=== PATIENT | male | born 1950 | race Caucasian/White ===

== ENCOUNTER 2018-10-06 13:30 | Inpatient (IN) ==
[2018-10-06] MEDS ORDERED: VANCOMYCIN 1 GM/NS 1 GM/250 ML IVPB IV ONE (13:56)
[2018-10-06] MEDS ORDERED: DILAUDID IV ONE (13:59)
--- NOTE | 2018-10-06 14:30 | PROVIDER DOCUMENTATION ---
HPI-General Adult - General Chief Complaint: Extremity Pain Stated Complaint: rt foot 3RD TOE BLUE Time Seen by Provider: 10/06/18 13:54 Source: patient Allergies/Adverse Reactions: Patient Allergies Allergy/AdvReac Type Severity Reaction Status Date / Time Penicillins Allergy Unknown Verified 04/01/18 00:21 Home Medications: Home Medication List Medication Instructions Recorded Confirmed Last Taken Type Albuterol Sulfate Inhaler 2 puff INH Q4H PRN PRN #1 inhaler 05/27/15 04/01/18 03/31/18 21:00 Rx [Ventolin Hfa] Furosemide [Lasix] 20 mg PO DAILY #30 tablet 05/27/15 04/01/18 03/31/18 07:00 Rx Glipizide [Glipizide ER] 10 mg PO BID 04/02/18 04/02/18 Unknown History Isosorbide Mononitrate [Isosorbide 60 mg PO DAILY 04/02/18 04/02/18 Unknown History Mononitrate ER] Lisinopril 20 mg PO DAILY 04/02/18 04/02/18 Unknown History Metformin [Glucophage] 1,000 mg PO BID 04/02/18 04/02/18 Unknown History Aspirin 81 mg PO DAILY chewtab 04/03/18 Unknown Rx Carvedilol [Coreg] 6.25 mg PO BID tablet 04/03/18 Unknown Rx Insulin Aspart [Novolog] 20 units SUBQ QAM #0 04/03/18 04/02/18 Unknown Rx Ipratropium [place] Inhaler 2 puff INH FA0EUGA #1 inhaler 04/03/18 Unknown Rx [Atrovent Hfa] Levofloxacin [Levaquin] 750 mg PO DAILY #3 tab 04/03/18 Unknown Rx Methylprednisolone [Medrol Dosepak] 4 mg PO DIRECTED #1 pkg 04/03/18 Unknown Rx - History of Present Illness -Gen Adult Nature of Presenting Problems: 68 YOM presents with a R foot wound on the second toe Location of Pain/Injury: reports: feet Pain Radiation: reports: no radiation Body: 1 - 2nd toe wound, black with foul smell and no drainage Quality of Pain: reports: aching, throbbing Severity: reports: moderate Onset/Duration: reports: 2 days ago Timing: reports: still present Context/Activities at Onset: reports: none Modifying Factors: improves with: nothing Associated Symptoms: reports: denies symptoms Similar Symptoms Previously?: No Recently seen or treated by another doctor?: No - Diabetes Related Context Context: reports: high blood sugar Review of Systems - Adult - REVIEW OF SYSTEMS - ADULT ROS:: unobtainable per condition Constitutional: reports: no symptoms reported Eyes: reports: no symptoms reported Ears, Nose, Mouth & Throat: reports: no symptoms reported Cardiovascular: reports: no symptoms reported Respiratory: reports: no symptoms reported Gastrointestinal: reports: no symptoms reported Genitourinary: reports: no symptoms reported Musculoskeletal: reports: no symptoms reported Integumentary: reports: skin sores/ulcer (l 2nd toe) Neurological: reports: no symptoms reported Psychiatric: reports: no symptoms reported Endocrine: reports: no symptoms reported Hematologic/Lymphatic: reports: no symptoms reported Allergic/Immunologic: reports: no symptoms reported Past History - Adult - PAST MEDICAL HISTORY-ADULT Review of Records: reports: Nursing Assessment Review Major Childhood Illnesses: reports: denies history Cardiovascular: reports: HTN Respiratory: reports: COPD Gastrointestinal: reports: denies history Obstetrical/Gynecological: reports: denies history Genitourinary: reports: denies history Musculoskeletal: reports: denies history Neurological: reports: denies history Psychiatric: reports: denies history Endocrine/Immune: reports: denies history Other Conditions: reports: denies history - PRIOR SURGERIES/PROCEDURES Surgical/Procedure History: reports: reviewed, not pertinent - IMMUNIZATION STATUS Childhood Immunizations: See Nurse Assessment Flu Vaccine: See Nurse Assessment - FAMILY HISTORY Family History: reviewed, not pertinent Physical Exam-General - PHYSICAL EXAM-ADULT Initial Vital Signs Reviewed: Yes - CONSTITUTIONAL General Appearance: appears well, alert, no apparent distress - EYES Eyes: PERRL/EOMI, pink conjunctivae - HEAD, EARS, NOSE, MOUTH & THROAT HENMT: normocephalic/atraumatic, moist mucous membranes - NECK Neck: non-tender, full range of motion - RESPIRATORY Respiratory: chest non-tender, lungs clear - CARDIOVASCULAR Cardiovascular: normal peripheral pulses - GASTROINTESTINAL (ABDOMEN) Abdominal Exam: normal bowel sounds, non tender - LYMPHATIC Lymphatic: no adenopathy - MUSCULOSKELETAL Back Exam: normal inspection, no CVA tenderness, no vertebral tenderness Extremity: no pedal edema Peripheral Pulses: dorsalis-pedis (R): 1+, dorsalis-pedis (L): 1+ - SKIN Integumentary: warm/dry, other (ulcer to L second toe) - NEUROLOGIC Neurologic: grossly normal - PSYCHIATRIC Psych/Mental Status: normal mood/affect, oriented x 3 Progress - PLAN OF CARE/RESULTS Progress/Plan/Lab Results: Vital Signs - 8 hr 10/06/18 13:39 10/06/18 13:49 10/06/18 13:50 Temperature 97.9 F Pulse Rate 111 H 115 H 116 H Respiratory Rate 18 10 L 22 Blood Pressure 91/70 O2 Sat by Pulse Oximetry 99 99 100 10/06/18 13:53 10/06/18 14:00 10/06/18 14:10 Temperature Pulse Rate 115 H 113 H 112 H Respiratory Rate 18 19 25 H Blood Pressure 190/96 O2 Sat by Pulse Oximetry 98 99 95 10/06/18 14:20 Temperature Pulse Rate 109 H Respiratory Rate 23 Blood Pressure O2 Sat by Pulse Oximetry 99 Orders Category Date Time Status FSBS/Accucheck Result NOW Care 10/06/18 13:56 Active Saline Loc NOW Care 10/06/18 13:54 Active BLOOD CULTURE [BLDCUL] Stat Lab 10/06/18 13:56 Uncollected CBC WITH ELECTRONIC DIFF [HEME] Stat Lab 10/06/18 13:54 Uncollected COMPREHENSIVE METABOLIC PANEL [CHEM] Stat Lab 10/06/18 13:54 Uncollected PROTIME WITH INR [COAG] Stat Lab 10/06/18 13:54 Uncollected PTT [COAG] Stat Lab 10/06/18 13:54 Uncollected URINALYSIS [URINALYSIS] Stat Lab 10/06/18 13:56 Uncollected Hydromorphone [Dilaudid] Med 10/06/18 13:59 Discontinued 1 mg IV NOW ONE Vancomycin 1 gm/Ns Med 10/06/18 13:56 Active 1 gm in 250 ml IV NOW EKG [EKG] Stat Ther 10/06/18 13:54 Ordered Result Diagrams: 10/06/18 14:35 10/06/18 14:35 - REASSESSMENT Reassessment #1 Time Reassessed: 14:40 (pain improved) Status: improving Reassessment #2 Time Reassessed: 15:50 (Hospitalist Paged) Status: improving - XRAY 1 XRAY Study: Chest Departure - Departure Date of Disposition Decision: 10/06/18 Time of Disposition Decision: 15:58 DIAGNOSIS: Diabetic foot infection Disposition: ADMITTED INPATIENT 09 Certified Medical Emergency: Emergent Condition: Stable Referrals and Follow-Ups: None,PCP [Primary Care Provider] - - Critical Care Note This patient required my direct & personal management of CC.: No Attestation - Physician/ GARRY Attestation Patient care was provided by Advanced Practice Provider:: Yes Advanced Practice Provider:: Clover Mcconnell Advanced Practice Provider documentation review:: The Mid-level provider documentation, treatment plan and medical decision making was reviewed by the physician who agrees with all treatment and medical decision making by the MLP. The physician spent face to face time with patient:: No Advanced Practice Provider documentation review:: Supervising physician onsite and consulted in the evaluation and care of this patient. The physician did not have a face to face encounter with the patient.
[2018-10-06 15:01] LABS: BASO# 0.03 X1000 (0.0-0.2); BASO% 0.2 % (0.0-0.8); EOS# 0.12 X1000 (0.0-0.7); EOS% 0.9 % (0.0-10.0); HEMATOCRIT 39.3 % (42.0-52.0); HEMOGLOBIN 13.5 g/dL (14.0-18.0); IMM GRAN# 0.03 X1000 (0.0-0.04); IMM GRAN% 0.2 % (0.0-0.5); LYMPH# 1.75 X1000 (1.2-3.4); LYMPH% 13.8 % (20.5-51.1); MCH 31.9 PG (27-31); MCHC 34.4 g/dL (33-37); MCV 92.9 FL (81-99); MONO# 1.09 X1000 (0.11-0.59); MONO% 8.6 % (1.7-9.3); MPV 8.9 FL (7.4-10.4); NEUT# 9.68 X1000 (1.4-6.5); NEUT% 76.3 % (42.2-75.2); PLT 466 X1000 (130-400); RBC 4.23 XMIL (4.7-6.1); RDW 12.4 % (11.5-14.5)
[2018-10-06 15:08] LABS: INR 1.04; PROTIME 14.5 Seconds (11.0-16.0)
[2018-10-06 15:09] LABS: PTT 34.9 Seconds (22.3-41.8)
[2018-10-06 15:24] LABS: ALB/GLOB RATIO 1.3; ALBUMIN 4.2 g/dL (3.5-5.0); CALCIUM 9.7 mg/dL (8.8-10.2); CREATININE 1.2 mg/dL (0.7-1.2); POTASSIUM 4.6 mmol/L (3.5-5.1); TOTAL BILIRUBIN 0.29 mg/dL (0.20-1.00); TOTAL PROTEIN 7.4 g/dL (6.3-8.3)
[2018-10-06] MEDS ORDERED: VANCOMYCIN IV PER PHARMACY MISC SCH (17:30)
[2018-10-06] MEDS ORDERED: TYLENOL PO PRN (17:38)
--- NOTE | 2018-10-06 18:46 | HISTORY AND PHYSICAL ---
PRIMARY CARE PROVIDER: Dr. Hinson - [facility]. CHIEF COMPLAINT: Right third toe pain and infection. HISTORY OF PRESENT ILLNESS: Mr. Omari Hager is a 68-year-old male with a medical history of CAD, CHF, COPD, diabetes mellitus type 2, hypertension, and most recently arterial disease in the right lower extremity. He states that Dr. Tripathi in June of this year, 2018, put in a stent and he has been having ultrasounds of the leg. He has noticed over the last three days that the right third toe has started hurting, specifically between the toes and on top of the toes, and there has been a crusted open wound that had developed that is very painful. It does have foul smell with purulent drainage between the toes with a cellulitis streaking up the right foot, the dorsal foot and so he has an elevated white count of 12,000. Will start him on vancomycin and consult General Surgery. We will likely need to try and get him over to [place] where he has been seen recently by Dr. Tripathi. The patient also states that he went and had an ultrasound of the right lower extremity but did not stay there. He went home and the son saw the toe, which then made him come here. PAST MEDICAL HISTORY: 1. Coronary artery disease. 2. Chronic systolic congestive heart failure. 3. COPD. 4. Type 2 diabetes. 5. Hypertension. 6. Right femoral arterial disease. I believe there is a stent there but I believe there was also mention of femoral arterial bypass, but this has not been performed. PAST SURGICAL HISTORY: Right femoral artery stent. SOCIAL HISTORY: One pack per day smoker since his teens. Alcohol about once a year. Denies any illicit drug use. He lives at home alone. 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 FAMILY HISTORY: He had one sister that had diabetes mellitus type 2 and thyroid disease. ALLERGIES: Penicillin, he is unsure of the reaction it causes. HOME MEDICATIONS: 1. Neurontin 300 mg p.o. nightly. 2. Aspirin 81 mg two tablets p.o. daily. 3. Cardizem 120 mg p.o. daily. 4. Chlorthalidone 12.5 mg p.o. daily. 5. Cilostazol 50 mg p.o. twice daily. 6. Coreg 25 mg p.o. twice daily. 7. Crestor 20 mg p.o. daily. 8. Glipizide extended release 10 mg p.o. twice daily. 9. Metformin 1000 mg p.o. twice daily. 10.Isosorbide mononitrate extended release 60 mg p.o. daily. 11.Lisinopril 40 mg p.o. daily. 12.NPH 20 units subcutaneously daily. 13.Plavix 75 mg p.o. daily. 14.Lasix 20 mg p.o. daily. 15.Albuterol sulfate two puffs inhaled every four hours p.r.n. REVIEW OF SYSTEMS: A 14-point review of systems is complete, and all were negative except for those mentioned in the above HPI. PHYSICAL EXAMINATION: VITAL SIGNS: Temperature is 97.9, heart rate 94, respiratory rate 20, blood pressure 132/89, O2 saturation is 98% on room air. GENERAL: Mr. Omari Hager is a 68-year-old male. He is in no acute distress. He is able to answer questions appropriately. HEENT: Atraumatic and normocephalic. Pupils are equal, round and reactive to light. Extraocular movements intact. Mucous membranes are moist. NECK: Trachea midline. CARDIOVASCULAR: S1, S2. Regular rate and rhythm. No rubs, gallops or murmurs. He has trace lower extremity edema. Cool feet bilaterally. Trace palpable popliteal pulses. Negative for JVD or carotid bruits. PULMONARY: Clear to auscultation with bilateral breath sounds. No accessory muscle use or work of breathing noted. GASTROINTESTINAL: Soft. Nontender. Nondistended. Positive bowel sounds x4. EXTREMITIES: Moves all extremities equally, full range of motion. NEUROLOGICAL: Alert and oriented x3. Follows commands. Sensory is intact but decreased in the lower extremities. SKIN: Warm, dry and intact except for right third toe which is necrotic and foul smelling wound. LABORATORY DATA: White blood cells 60727, hemoglobin 13, hematocrit 39, platelet count 466. INR is 1.04. PTT is 34.9. Sodium is 135, potassium 4.6, BUN is 20, creatinine 1.2, glucose 204, calcium 9.7. Bilirubin is 0.29, AST is 12, ALT is 11. IMAGING: None. ASSESSMENT AND PLAN: 1. Right third toe ulceration with wound and possibly poor perfusion to that right third toe with history of arterial disease in the right leg and recent stent [place] [address] Tripathi. So, he has been started on vancomycin. Culture ordered to swab the site and Dr. Martinez personally notified by phone. He wants to do Betadine on it for now. 2. Diabetes mellitus type 2. Will do patterned blood glucoses, sliding scale insulin, and diabetic diet. 3. Hypertension. Continue home medications. 4. Coronary artery disease. Denies chest pain. 5. Right femoral lower extremity arterial disease. Recent stent by Dr. Tripathi. He has been on Plavix, will continue that. 6. Chronic obstructive pulmonary disease. Nebulizers every six hours. Dictated by ALEX Turcios for Lisa Doan MD cc: ALEX Turcios MD I performed a face to face encounter on the patient. I reviewed all labs on the patient. I agree with the H&P as dictated. [facility]
--- NOTE | 2018-10-06 18:53 | GENERAL SURGERY CONSULTATION ---
DATE: 10/06/2018 HISTORY OF PRESENT ILLNESS: A 68-year-old gentleman history of peripheral vascular disease who had a right iliac or femoral stent placed by Dr. Lino in [place] in June or July of this year. He presents with several days of necrotic changes to his right 3rd toe. He has apparently been evaluated by Dr. Lino for this. Duplex obtained in [place] we do not have the results of this but he came the [facility]. He is supposed see [facility] Saturday. He does give claudication symptom bilateral lower extremities for some time. Denies any fevers. Some pain in his foot currently. Came the ER has been admitted the hospitalist. MEDICAL HISTORY: Peripheral vascular disease, history of smoking, hypertension, diabetes, COPD. SURGICAL HISTORY: He has had a right lower extremity arterial stent. SOCIAL HISTORY: He does smoke, history drinking. FAMILY HISTORY: Reviewed noncontributory. REVIEW OF SYSTEMS: Ten point negative. EXAM: Pulse been in the 90s, blood pressure 142/86, oxygen saturation 96%.General: He is alert, chronically ill-appearing gentleman. HEENT: No scleral icterus. Cardiovascular: Normal rate. Pulmonary: No increased work of breathing. Abdomen: Soft. Integument: Warm dry. Psychiatric: Appropriate affect. Peripheral vascular: He does have some bilateral edema. He has no palpable pedal popliteal, femoral pulses bilaterally but his feet are warm. The right 3rd toe is necrotic with no purulence . Neurologic: He is somewhat tremulous appearing. ASSESSMENT AND PLAN: A 68-year-old gentleman with necrosis of his right 3rd toe and peripheral vascular disease. We do not have any of his records regarding his arterial disease and interventions. I recommended that we attempt to get him back to Dr. Lino as is he is familiar with this case and is working this up as an outpatient. In the meantime we can continue Betadine paint to his right 3rd toe. I did discuss the non-salvageable nature of this toe, he understands, son is here with him, will follow along. cc: Gita Martinez MD
[2018-10-06] MEDS ORDERED: VANCOMYCIN 500 MG/NS 500 MG/100 ML IVPB IV ONE (19:00)
[2018-10-06] MEDS: DILAUDID IV PRN (20:20)
[2018-10-06] MEDS: AZACTAM 1 GM in NS 50 ML IV SCH (21:10)
[2018-10-06] MEDS: PULMICORT INH SCH (21:47)
[2018-10-06] MEDS: DUONEB (A & A) INH SCH (21:47)
[2018-10-06] MEDS: HUMULIN R SUBQ SCH (23:29)
[2018-10-06] MEDS: PLETAL PO SCH (23:29)
[2018-10-06] MEDS: GLUCOTROL XL PO SCH (23:29)
[2018-10-06] MEDS: NEURONTIN PO SCH (23:29)
[2018-10-06] MEDS: COREG PO SCH (23:29)
[2018-10-07] MEDS: DILAUDID IV PRN ×6 (00:16→20:22)
[2018-10-07 00:19] LABS: URINE SOURCE VOIDED
[2018-10-07 00:23] LABS: BILIRUBIN URINE NEGATIVE (NEGATIVE); BLOOD URINE TRACE (NEGATIVE); COLOR YELLOW; GLUCOSE URINE 70 mg/dL (NEGATIVE); KETONE URINE NEGATIVE (NEGATIVE); LEUKOCYTES URINE SMALL (NEGATIVE); NITRITE URINE POSITIVE (NEGATIVE); PH URINE 6.5; PROTEIN URINE 50 mg/dL (NEGATIVE); SP GRAVITY URINE 1.006; TURBIDITY URINE CLEAR (CLEAR); UR EPITHELIAL CELLS <10 /HPF (<10); URINE BACTERIA 3+ /HPF; URINE RBC <10 /HPF (<10); URINE WBC 20-40 /HPF (<10); UROBILINOGEN URINE NORMAL (NORMAL)
[2018-10-07] MEDS: DUONEB (A & A) INH SCH ×4 (03:37→22:05)
[2018-10-07] MEDS: AZACTAM 1 GM in NS 50 ML IV SCH (04:18)
[2018-10-07] MEDS: HUMULIN R SUBQ SCH ×4 (06:38→23:12)
[2018-10-07 06:52] LABS: BASO# 0.06 X1000 (0.0-0.2); BASO% 0.7 % (0.0-0.8); EOS# 0.32 X1000 (0.0-0.7); EOS% 3.6 % (0.0-10.0); HEMATOCRIT 36.1 % (42.0-52.0); HEMOGLOBIN 12.2 g/dL (14.0-18.0); LYMPH# 1.71 X1000 (1.2-3.4); MCH 32.2 PG (27-31); MCHC 33.8 g/dL (33-37); MCV 95.3 FL (81-99); MONO# 0.92 X1000 (0.11-0.59); MONO% 10.2 % (1.7-9.3); MPV 8.8 FL (7.4-10.4); NEUT# 5.97 X1000 (1.4-6.5); NEUT% 66.5 % (42.2-75.2); PLT 429 X1000 (130-400); RBC 3.79 XMIL (4.7-6.1); RDW 12.7 % (11.5-14.5); WBC 8.98 X1000 (4.8-10.8)
[2018-10-07 07:20] LABS: ALB/GLOB RATIO 1.1; ALBUMIN 3.6 g/dL (3.5-5.0); CALCIUM 9.3 mg/dL (8.8-10.2); CREATININE 1.3 mg/dL (0.7-1.2); MAGNESIUM 1.8 mg/dL (1.5-2.7); POTASSIUM 4.8 mmol/L (3.5-5.1); TOTAL BILIRUBIN 0.26 mg/dL (0.20-1.00); TOTAL PROTEIN 6.9 g/dL (6.3-8.3)
[2018-10-07] MEDS: PULMICORT INH SCH ×2 (07:25→20:08)
[2018-10-07 07:46] LABS: INR 1.04; PROTIME 14.4 Seconds (11.0-16.0)
[2018-10-07 07:47] LABS: PTT 36.3 Seconds (22.3-41.8)
[2018-10-07] MEDS: MAXIPIME 2 GM in NS 100 ML IV SCH ×2 (08:24→23:19)
[2018-10-07] MEDS: GLUCOTROL XL PO SCH ×2 (08:29→23:18)
[2018-10-07] MEDS: CRESTOR PO SCH (08:29)
[2018-10-07] MEDS: PLETAL PO SCH ×2 (08:29→23:19)
[2018-10-07] MEDS: IMDUR PO SCH (08:30)
[2018-10-07] MEDS: ZYVOX PO SCH ×2 (08:30→23:19)
[2018-10-07] MEDS: COREG PO SCH ×2 (08:31→23:19)
[2018-10-07] MEDS: CARDIZEM CD PO SCH (08:31)
[2018-10-07] MEDS: LASIX PO SCH (08:31)
[2018-10-07] MEDS: HYGROTON PO SCH (08:38)
[2018-10-07] MEDS: HUMULIN N SUBQ SCH (08:38)
[2018-10-07] MEDS ORDERED: PLAVIX PO SCH (09:00)
[2018-10-07] MEDS ORDERED: ASPIRIN PO SCH (09:00)
[2018-10-07] MEDS ORDERED: PRINIVIL PO SCH (09:00)
--- NOTE | 2018-10-07 09:11 | INFECTIOUS DISEASE CONSULT REP ---
DATE: 10/07/2018 CONCLUSION: Patient has gangrenous cellulitis of the right 3rd toe. The patient also has peripheral vascular disease. The patient has an allergy to penicillin. He told me he cannot remember what the allergy was and happened over 50 years ago. He does remember though that in the past he has had Keflex and he tolerated it well. The patient has not urinated since yesterday. I am concerned that he may have urinary retention. Based on the patient's urinalysis, it looks like he has urinary tract infection. RECOMMENDATIONS: I have discontinued vancomycin and aztreonam and I have ordered the patient to have p.o. Zyvox and IV cefepime. I have requested that the patient be observed during the first dose of cefepime. I have ordered a bladder scan and have requested that I be called the results as soon as possible. DISCUSSION: The patient tells me that approximately 3 days ago, he started noting that his 3rd toe was turning black. It also is painful. He does not remember having any fever. Laboratory studies thus far show a CBC with a white count of 8980, hemoglobin 12.2, and platelet count is 429,000. Creatinine is 1.3, GFR is 55. Urinalysis shows white cells and bacteria. Cultures from the patient's blood and toe are pending. I have just gotten back the results of the patient's bladder scan and the patient tried to urinate and passed only a small amount and the bladder scan showed that he had 631 mL of urine in his bladder. PAST MEDICAL HISTORY/REVIEW OF SYSTEMS: Eyes and ears: He can hear and see okay. Neck: No stiffness. Respiratory: No current cough or dyspnea. Cardiac: No chest pain or palpitations. GI: No nausea, vomiting, or diarrhea. : The patient has urinary retention as manifested by the bladder scan which showed 631 mL of urine which occurred after the patient tried to urinate on his own. Because of that, I have ordered a Gregorio catheter on the patient. Neurologic: No seizures, no unilateral loss of motor or sensory function. Endocrine: Patient has diabetes but not thyroid disease. PREVIOUS HOSPITALIZATIONS AND OPERATIONS: He has been admitted before because of COPD; also many years ago for pneumonia. He has had a right femoral artery stent placed by Dr. Yunior Tripathi of [place]. MEDICAL DISEASES: Positive for COPD, diabetes mellitus, hypertension, congestive heart failure, and peripheral vascular disease, hyperlipidemia. INFECTIOUS DISEASE: History positive for pneumonia, negative for UTI. FAMILY HISTORY: Positive for diabetes mellitus, hypertension and myocardial infarction. SOCIAL HISTORY: [place] He is . He lives alone. He has a cat as a pet. He smokes cigarettes and drinks alcoholic beverages. He does not abuse drugs. As mentioned earlier, the patient says he is allergic to penicillin. He said it happened when he was a child which is over 50 years ago and he cannot remember what the reaction was. He has in the past had Keflex and tolerated it well. HOME MEDICATIONS: 1. Albuterol inhaler. 2. Aspirin. 3. Coreg. 4. Chlorthalidone. 5. Cilostazol. 6. Plavix. 7. Cardizem. 8. Lasix. 9. Gabapentin. 10. Glipizide. 11. Isordil. 12. Lisinopril. 13. Metformin. 14. NPH insulin. 15. Crestor. PHYSICAL EXAMINATION: Vital Signs: Temperature is 98.4 degrees, pulse 70, respirations 19, blood pressure 120/78. The patient is 5 feet 4 inches tall, weighs 143 pounds. General: This is a somewhat ill-appearing, elderly male. He is in no acute distress. Head, eyes, ears, nose, and throat: Can hear my spoken words and see near objects. There is no drainage coming from the nose or ears. He does not have any white patches on his tongue. Teeth appear to be in a good state of health. Neck: No pain with movement of the neck. Thorax: Patient has an increased AP diameter of the chest. Lungs: Clear to auscultation. Cardiovascular: Heart rate is regular. There were diminished pulses in the legs, especially on the right leg. I could not feel a peripheral pulse. Abdomen: Soft and nontender. Neurologic: The patient is alert. He can move his extremities. There is no tremor. His sensation is in intact to touch. His memory as regarding his medical history was fairly good. Integument: No rash. Extremities: The right 3rd toe is black and there is some surrounding erythema. The toe is tender. cc: Piyush Rosales MD
--- NOTE | 2018-10-07 09:59 | GENERAL SURGERY PROGRESS NOTE ---
DATE: 10/07/2018 SUBJECTIVE: no events . Hemodynamically stable. No tachycardia. OBJECTIVE: I reviewed his labs: White count is 8, hematocrit 36 creatinine is 1.3. He does have positive urinalysis.Stable necrotic changes right 3rd toe ASSESSMENT/PLAN: 68-year-old gentleman with necrosis of the right 3rd toe, peripheral vascular disease. He is known to Dr. Tripathi and he has had an ongoing workup with him given. That he is known to Dr. Tripathi and with further vascular interventions, I would recommend transfer back to his service. Otherwise, from a toe standpoint, there is known infection here. There is no purulence. I would recommend Betadine paint to the toe and antibiotics per the Medicine Service. cc: Gita Martinez MD MTDD
--- NOTE | 2018-10-07 14:14 | PROGRESS NOTE ---
DATE: 10/07/2018 SUBJECTIVE: Patient has no focal complaints. OBJECTIVE: Vital Signs: Blood pressure is 98/68, heart rate is 68, respiratory rate 14, temperature 98.8, 97% on room air. Cardiovascular: Regular rate and rhythm. Pulmonary: Bilateral breath sounds. Clear to auscultation. Gastrointestinal: Soft, nontender, nondistended. Bowel sounds are positive. LABORATORY DATA: White count is 8, hemoglobin and hematocrit 12 and 36, platelets 429,000. Creatinine is up to 1.3. Micro: Nothing growing from urine culture. Blood cultures are clear. PROBLEM LIST: 1. Severe PVD with an ischemic toe. He is under the care of Dr. Tripathi, so we will continue management per him. He was supposed to follow up with him today, but then he developed this urinary retention issue which has now turned to hematuria and will likely preclude that. He is on antibiotics per Dr. Rosales which he is now on Zyvox and cefepime. He was on vancomycin and We will continue treatment and follow. Surgery is following, but just recommend wound care and follow up with his primary surgeon. 2. Diabetes. He is stable on current blood sugars. 3. Hypertension. Appears to be overall improved. 4. Severe right femoral lower extremity disease. We will continue to monitor. 5. Hematuria. We are going to hold his anti-platelet at least for 24 hours until we can get the bleeding under control. Then we can resume those. 6. Disposition: I still anticipate trying to get home, but he says he cannot get up and walk because of pain. So I do not know, we may have to consider transfer. We will continue to follow. cc: Kwadwo Bradley MD [facility]
[2018-10-07] MEDS: FLOMAX PO SCH (16:28)
--- NOTE | 2018-10-07 18:07 | Diag Imaging Result Doc PS360 ---
EXAM: CT ABDOMEN/PELVIS W/O CONTRAST INDICATION: Gross hematuria.Urinary retention. Prostate nodule TECHNIQUE: This exam was performed using automated exposure control, adjustment of mA or kV according to patient size, and/or use of iterative reconstruction technique. COMPARISON: None. FINDINGS: There is mild subsegmental atelectasis at the lung bases. There are several faintly calcified stones in the gallbladder lumen. There is no pericholecystic inflammatory change. The liver, spleen, pancreas, and adrenal glands are essentially unremarkable. There are no renal or ureteral stones and there is no hydronephrosis. The kidneys are unremarkable, otherwise. There is a Gregorio catheter in the urinary bladder and the bladder is nondistended. As imaged, the prostate is unremarkable. The appendix is normal. There is uncomplicated diverticulosis coli involving the sigmoid colon. No focal bowel wall thickening is identified. There is no evidence of bowel obstruction. The appendix is normal. The remainder of the GI tract is essentially unremarkable. There is extensive aortoiliac atherosclerotic calcification. There is mild to moderate spondylosis throughout the spine. The bony structures are intact. IMPRESSION: 1.No renal or ureteral stones and no hydronephrosis. 2.Uncomplicated diverticulosis coli. 3.Cholelithiasis. 4.Other incidental/nonacute findings detailed above. No definite acute pathology by unenhanced CT. Electronically signed by Devin Munguia 10/07/2018 6:05 PM
--- NOTE | 2018-10-07 18:14 | CONSULTATION ---
DATE OF CONSULTATION: 10/07/2018 CHIEF COMPLAINT: Hematuria. HISTORY OF PRESENT ILLNESS: Mr. Hager is a 68-year-old male with coronary artery disease, congestive heart failure, COPD, type 2 diabetes, hypertension and recent peripheral artery vascular disease. The patient presented to the hospital due to a necrotic 3rd toe on the right foot. He noted some blackness there as well as significant pain, lead to his presentation to the hospital. The patient was evaluated by General Surgery here in [place] and by Infectious Disease. Plan was for him to be referred back to Dr. Lino for management of vasculopathy. Urology was consulted today as patient had a Gregorio catheter inserted this morning due to urinary retention. The catheter was slightly difficult to place by Nursing and patient developed some bleeding afterwards. The patient denies any prior episodes of gross hematuria, dysuria, urgency or frequency. He denies having any nocturia while at home. The patient has seen urologist sometime in the past related to erectile dysfunction, but does not know where the urologist was. The patient denies any family history of prostate cancer or prior kidney stones. The patient states his catheter has been draining well. He has not had any bladder spasms. PAST MEDICAL HISTORY: 1. Coronary artery disease. 2. Congestive heart failure. 3. COPD. 4. Type 2 diabetes. 5. Hypertension. 6. Right femoral arterial vascular disease. PAST SURGICAL HISTORY: Right femoral artery stent placement in June 2018. ALLERGIES: Penicillin. HOME MEDICATIONS: 1. Neurontin 300 mg p.o. nightly. 2. Aspirin 81 mg. 3. Cardizem 120 mg p.o. daily. 4. Chlorthalidone 12.5 mg p.o. daily. 5. Cilostazol 50 mg p.o. b.i.d. 6. Coreg 25 mg p.o. b.i.d. 7. Crestor 20 mg p.o. daily. 8. Glipizide ER 10 mg p.o. b.i.d. 9. Metformin 1000 mg p.o. b.i.d. 10. Isosorbide mononitrate extended release 60 mg p.o. daily. 11. Lisinopril 40 mg p.o. daily. 12. NPH insulin 20 units subq daily. 13. Plavix 75 mg p.o. daily. 14. Lasix 20 mg p.o. daily. 15. Albuterol sulfate 2 puffs q.4 hours as needed. FAMILY HISTORY: Denies family history of malignancy. SOCIAL HISTORY: Patient is a 1 pack-a-day smoker. Occasionally drinks alcohol. Denies any illicit drug use. REVIEW OF SYSTEMS: Twelve-point review of systems performed with all pertinent positive, negatives in HPI. PHYSICAL EXAMINATION: Vital Signs: Temperature 98.4 degrees, heart rate 66, blood pressure 103/49, oxygen saturation 94% on room air. General: No acute distress. Resting comfortably in bed, alert and oriented x3. HEENT: Normocephalic, atraumatic. Pupils equal, round, reactive to light. Mucous membranes moist. Neck: Trachea midline with no obvious neck deformity. Cardiovascular: Regular rate and rhythm. No evidence of lower extremity edema. Bilateral lower extremities slightly cold to palpation. Pulmonary: Good respiratory without audible wheezing or rales. Abdomen: Soft, nontender, nondistended. No palpable masses. : No suprapubic tenderness. No CVA tenderness. Normal circumcised phallus with urethral catheter in place with small amount red tinged urine within the catheter itself. No evidence of any clotting within the catheter. Small amount of drainage in the bag itself. Bilateral testicles palpated without masses. Nontender to palpation. Digital rectal exam showed a approximate 30 g prostate with a firm nodule within the midgland measuring approximately a centimeter in total diameter. No other obvious nodularity or asymmetry was palpated. Neurologic: Gross motor and sensory intact. Skin: Warm, dry, intact. Extremities: Right lower extremity had the foot covered with a dressing. LAB WORK: White blood cell count 8.98, hemoglobin 12.2, hematocrit 36.1, platelets 429,000. Sodium 132, potassium 4.8, chloride 96, bicarb 23, BUN 23, creatinine 1.3, bicarb 32, glucose 147, calcium 9.3. Urinalysis showed 50 of protein, 70 of glucose, trace blood, positive nitrite, small amount of leukocytes and 20 to 40 RBCs with 3+ bacteria. ASSESSMENT AND PLAN: Mr. Hager is a 68-year-old with coronary artery disease, congestive heart failure, chronic obstructive pulmonary disease, type 2 diabetes, hypertension and peripheral artery vascular disease who presents in consultation regarding hematuria after catheter placement. The patient has a catheter in place, is draining clear yellow urine with no evidence of any clots. There is some red tinge to this within the bag itself. I did irrigate his bladder and there was return of a small amount of pinkish urine without clot. No evidence of any clots were obtained. The patient denies any bladder spasms or urethral discomfort. The patient has extensive smoking history which could be leading to his hematuria. Recommend obtaining a CT scan which has been ordered. Likely will need cystoscopy to better assess his bladder for any etiologies of malignancy. The patient did have a prostatic nodule on exam today, would obtain a PSA today to better assess for risk of prostate cancer. The patient denies any voiding symptoms at this time. We will plan to leave the catheter in for several days. The patient has been started on Flomax due to his urinary retention. Will continue on Flomax at this time. The patient's urinalysis on presentation did show 3+ bacteria and concern for infection. The patient has been on antibiotics but no urine culture has been sent from his urinalysis showing bacteria. Will plan to send urine culture but hopefully will be negative as patient has already been on several antibiotics. Will continue to follow. Please call with questions or concerns. cc: Trevon No MD MTDD
[2018-10-07] MEDS: ZOFRAN IV PRN ×2 (18:26→22:40)
[2018-10-07] MEDS ORDERED: VANCOMYCIN 1,250 MG in NS 250 ML IV SCH (21:00)
[2018-10-07 22:59] LABS: URINE SOURCE CATH
[2018-10-07 23:15] LABS: UR EPITHELIAL CELLS <10 /HPF (<10); URINE BACTERIA NEGATIVE /HPF; URINE RBC TNTC /HPF (<10); URINE WBC 20-40 /HPF (<10)
[2018-10-07] MEDS: NEURONTIN PO SCH (23:19)
[2018-10-07 23:32] LABS: BILIRUBIN URINE NEGATIVE (NEGATIVE); BLOOD URINE LARGE (NEGATIVE); COLOR BROWN; GLUCOSE URINE NEGATIVE (NEGATIVE); KETONE URINE TRACE mg/dL (NEGATIVE); LEUKOCYTES URINE SMALL (NEGATIVE); NITRITE URINE NEGATIVE (NEGATIVE); PH URINE 5.5; PROTEIN URINE 200 mg/dL (NEGATIVE); TURBIDITY URINE TURBID (CLEAR); UROBILINOGEN URINE NORMAL (NORMAL)
[2018-10-08] MEDS: DILAUDID IV PRN ×6 (01:10→20:13)
[2018-10-08] MEDS: ZOFRAN IV PRN ×3 (02:09→14:25)
[2018-10-08 03:47] LABS: BASO# 0.02 X1000 (0.0-0.2); BASO% 0.2 % (0.0-0.8); EOS# 0.14 X1000 (0.0-0.7); EOS% 1.2 % (0.0-10.0); HEMATOCRIT 34.2 % (42.0-52.0); HEMOGLOBIN 11.5 g/dL (14.0-18.0); IMM GRAN# 0.03 X1000 (0.0-0.04); IMM GRAN% 0.3 % (0.0-0.5); LYMPH# 1.15 X1000 (1.2-3.4); LYMPH% 9.6 % (20.5-51.1); MCH 31.9 PG (27-31); MCHC 33.6 g/dL (33-37); MCV 94.7 FL (81-99); MONO# 0.88 X1000 (0.11-0.59); MONO% 7.4 % (1.7-9.3); MPV 8.5 FL (7.4-10.4); NEUT# 9.71 X1000 (1.4-6.5); NEUT% 81.3 % (42.2-75.2); PLT 437 X1000 (130-400); RBC 3.61 XMIL (4.7-6.1); RDW 12.3 % (11.5-14.5); WBC 11.93 X1000 (4.8-10.8)
[2018-10-08] MEDS: DUONEB (A & A) INH SCH ×4 (04:04→21:10)
[2018-10-08 04:10] LABS: CALCIUM 9.2 mg/dL (8.8-10.2); CREATININE 2.3 mg/dL (0.7-1.2); POTASSIUM 4.7 mmol/L (3.5-5.1)
[2018-10-08] MEDS: HUMULIN R SUBQ SCH ×3 (06:50→18:46)
--- NOTE | 2018-10-08 07:21 | PROGRESS NOTE ---
DATE: 10/08/2018 SUBJECTIVE: No acute events overnight. The patient has remained afebrile with stable vital signs. The patient continues to make good urinary output with 1400 mL recorded yesterday. The patient's urine remains slightly brown tinged. The patient complains of right foot pain as well as left butt pain that started this morning. Denies any nausea or vomiting. OBJECTIVE: Vital signs: Temperature 97.8 degrees, heart rate 74, blood pressure 112/61, oxygen saturation 95% on 2 L nasal cannula. General: No acute distress. Resting comfortably in bed. Respiratory: Good respiratory effort without audible wheezing or rales. Abdomen: Soft, nontender, and nondistended. : No suprapubic fullness or distention, no CVA tenderness. Urethral catheter in place draining slightly brownish urine with sediment present. Normal phallus with orthotopic meatus. Testicles palpated without masses or nodularity. LABORATORY: White blood cell count 11.9, hemoglobin 11.5, hematocrit 34.2, and platelets 437,000. Sodium 132, potassium 4.7, chloride 92, bicarb 25, BUN 39, creatinine 2.3, glucose 128, and PSA 5.08. IMAGING DATA: CT scan yesterday showed no evidence of hydronephrosis, renal mass or renal calculi. The bladder was decompressed with no obvious thickening or enlargement of the prostate with no obvious pelvic lymphadenopathy. ASSESSMENT AND PLAN: Mr. Hager is a 68-year-old with coronary artery disease, congestive heart failure, chronic obstructive pulmonary disease, type 2 diabetes, hypertension, and peripheral arterial disease, who presents in consultation for hematuria after catheter placement. The patient's catheter appears to be in place on CT imaging and is draining brownish urine at this time with a small amount of sediment present. No obvious clots were seen. The patient did have a significant increase in his creatinine from 1.3 to 2.3 today. Uncertain if patient is having some type of interstitial nephropathy versus acute tubular necrosis related to the antibiotics or his underlying peripheral vascular disease. The patient is making urine. However, it does appear to be slightly brown tinged. No obvious clots are seen within the urine itself. The patient's hematocrit and hemoglobin appears stable. White blood cell count is 11.9 today. I would recommend continued indwelling catheter. The patient's vital signs were stable. However, uncertain if a jump in his creatinine likely could be related to underlying kidney dysfunction that is complicated by undergoing antibiotic therapy. The patient is on multiple antibiotics at this time including linezolid and cefepime. The patient also received vancomycin and aztreonam, uncertain if these have led to myoglobinuria versus interstitial nephropathy. Recommended monitoring by hospitalist versus a consult with Nephrology. I would plan to proceed with cystoscopy and bilateral retrograde pyelograms tomorrow as patient continues to have hematuria. The patient is at high risk for urologic malignancy related to chronic smoking history. We will continue to monitor today. Please call with questions or concerns. cc: Trevon No MD MTDD
--- NOTE | 2018-10-08 07:26 | Diag Imaging Result Doc PS360 ---
EXAM: CHEST-PORTABLE HISTORY: crackles TECHNIQUE: Portable chest single view COMPARISON: 04/02/2018 FINDINGS: The lungs are well expanded. The heart is not enlarged. The vessels are not distended. There are no infiltrates. No effusion identified. There is a granuloma in the lower left lung. IMPRESSION: Negative exam. Electronically signed by Louis Molina 10/08/2018 7:24 AM
[2018-10-08] MEDS: MAXIPIME 2 GM in NS 100 ML IV SCH ×2 (07:30→20:13)
[2018-10-08] MEDS: CARDIZEM CD PO SCH (09:44)
[2018-10-08] MEDS: PLETAL PO SCH ×2 (09:44→20:12)
[2018-10-08] MEDS: FLOMAX PO SCH (09:45)
[2018-10-08] MEDS: LASIX PO SCH (09:46)
[2018-10-08] MEDS: HYGROTON PO SCH (09:46)
[2018-10-08] MEDS: CRESTOR PO SCH (09:46)
[2018-10-08] MEDS: ZYVOX PO SCH ×2 (09:47→20:13)
[2018-10-08] MEDS: IMDUR PO SCH (09:48)
[2018-10-08] MEDS: HUMULIN N SUBQ SCH (10:31)
[2018-10-08] MEDS: GLUCOTROL XL PO SCH ×2 (10:31→20:14)
[2018-10-08] MEDS: PULMICORT INH SCH ×2 (10:37→21:10)
--- NOTE | 2018-10-08 12:00 | INFECTIOUS DISEASE PROGRESS NO ---
DATE: 10/08/2018 PRESENT ILLNESS: The patient has gangrenous cellulitis of the right 3rd toe. Yesterday, he had urinary retention which required having a catheter put in. The patient also has renal failure. MEDICATIONS: The patient is on a combination of cefepime and Zyvox. PHYSICAL EXAMINATION: Vital Signs: Temperature is 99 degrees, pulse 89, respirations 18. There was no blood pressure on the chart. General: This is a chronically ill-appearing, elderly male. He is in no acute distress except that he does say his right 3rd toe is painful. Head/eyes/ears/nose/throat: There is no drainage from the nose or ears. He can hear my spoken words and see near objects. He does not have any white coating on his tongue. Neck: There is no pain when he moves his neck. Lungs: Clear to auscultation. Cardiovascular: Regular heart rate. Diminished peripheral pulses. Abdomen: Soft and nontender. Extremities: The right foot has a dressing on it. The dressing is intact. Neurologic: The patient is awake. He can move his extremities. There is no tremor. LAB AND X-RAY: CT scan of the abdomen and pelvis shows no renal calculi, no diverticulosis but it did show cholelithiasis. Chest x-ray shows no infiltrates. Cultures for blood, urine, and the right 3rd toe are still pending. Creatinine is 2.3. GFR is 28. [place] [address], hemoglobin 11.5, and platelet count of 437,000. ASSESSMENT AND PLAN: The patient has gangrenous cellulitis of the right 3rd toe. I plan to continue antibiotics. Yesterday I ordered a Gregorio catheter for the patient because he went into urinary retention. Dr. No now is following the patient for that. COMORBIDITIES: Include the patient is elderly, he has diabetes mellitus, peripheral vascular disease, COPD and congestive heart failure. cc: Piyush Rosales MD
[2018-10-08] MEDS: COREG PO SCH (13:28)
[2018-10-08 13:55] LABS: UR CREAT RANDOM 174.6 mg/dL (14-26); UR PROT RANDOM 110.9 mg/dL
[2018-10-08] MEDS: NS 1,000 ML IV SCH ×2 (14:11→20:17)
[2018-10-08] MEDS ORDERED: NS 1,000 ML IV ONE (18:01)
[2018-10-08] MEDS: NORCO-7.5 PO PRN (18:45)
[2018-10-08] MEDS: NEURONTIN PO SCH (20:13)
--- NOTE | 2018-10-08 23:27 | PROGRESS NOTE ---
DATE: 10/08/2018 SUBJECTIVE: The patient is still complaining of severe pain in his leg as well as multiple other issues. OBJECTIVE: Blood pressure 141/49, heart rate 60, respiratory rate 18, temperature 98.8 degrees. Cardiovascular: Regular rate and rhythm. Pulmonary: Bilateral breath sounds, clear to auscultation. GI: Soft, nontender, nondistended. Bowel sounds positive. Right leg is bound within a dressing. LABORATORY DATA: White count is 11, hemoglobin and hematocrit 11 and 34, platelets 437,000. Sodium 132, creatinine is up to 2.3 with a sugar of 239. ASSESSMENT AND PLAN: Problem list: 1. Acute kidney injury, possibly multifactorial. We will continue treatment with intravenous fluids. It does not appear to be that he is dehydrated. This could be acute tubular necrosis. We will check urine electrolytes. No evidence of obstruction. 2. Ischemic toe with arterial insufficiency. We will continue surgical treatment, intravenous antibiotics per Dr. Rosales and follow. He is followed by Vascular Surgery, Dr. Lion in [place], and we are trying to get him stabilized for transition there. 3. Diabetes. We will continue to follow his blood sugars. 4. Hypertension. Continue regular medications. At this point he has low blood pressure. We will hold his other medications until he stabilizes. 5. Hematuria with benign prostatic hypertrophy. We will continue to follow. Urology is monitoring. There is no evidence of obstruction. Dr. No is planning for cystoscopy tomorrow, assuming he is stable. 6. Disposition: Anticipate discharge versus home, with close vascular followup. Continue to monitor. cc: Kwadwo Bradley MD
[2018-10-09] MEDS: HUMULIN R SUBQ SCH ×4 (01:20→22:12)
[2018-10-09] MEDS: DILAUDID IV PRN ×5 (01:52→19:41)
[2018-10-09] MEDS: DUONEB (A & A) INH SCH ×3 (03:25→16:18)
[2018-10-09] MEDS: NS 1,000 ML IV SCH ×2 (07:01→15:18)
[2018-10-09 07:08] LABS: BASO# 0.03 X1000 (0.0-0.2); BASO% 0.3 % (0.0-0.8); EOS# 0.11 X1000 (0.0-0.7); EOS% 1.1 % (0.0-10.0); HEMOGLOBIN 10.7 g/dL (14.0-18.0); IMM GRAN# 0.03 X1000 (0.0-0.04); IMM GRAN% 0.3 % (0.0-0.5); LYMPH# 0.99 X1000 (1.2-3.4); LYMPH% 10.3 % (20.5-51.1); MCH 31.8 PG (27-31); MCHC 33.4 g/dL (33-37); MCV 95.2 FL (81-99); MONO# 0.68 X1000 (0.11-0.59); MONO% 7.1 % (1.7-9.3); MPV 8.9 FL (7.4-10.4); NEUT# 7.73 X1000 (1.4-6.5); NEUT% 80.9 % (42.2-75.2); PLT 415 X1000 (130-400); RBC 3.36 XMIL (4.7-6.1); RDW 12.3 % (11.5-14.5); WBC 9.57 X1000 (4.8-10.8)
--- NOTE | 2018-10-09 07:12 | PROGRESS NOTE ---
DATE: 10/09/2018 SUBJECTIVE: The patient is complaining of right lower extremity pain today. His pain radiates up into his gluteal area. He says it is most prominent in his right foot. Denies any fevers or chills. The patient did have some tachycardia overnight and a low-grade temperature at 99.8 degrees. Denies any nausea or vomiting. Urethral catheter in place draining clear yellow urine with over 1800 mL recorded. OBJECTIVE: Vital signs: Temperature of 99.8 degrees, heart rate 125, blood pressure 155/56. Oxygen saturation 96% on nasal cannula. General: No acute distress. Resting comfortably in bed. Alert and oriented x3. Abdomen: Soft, nontender, nondistended. Respiratory: Good respiratory effort without audible wheezing or rales. Genitourinary: No suprapubic tenderness. No CVA tenderness. Urethral catheter in place draining clear yellow urine. Lower extremity: Right lower extremity foot is covered with a dressing. The patient points to an area in his right gluteal area that is painful for him. LABORATORY DATA: Labs are being sent down this morning. ASSESSMENT AND PLAN: Mr. Hager is a 68-year-old with coronary artery disease, congestive heart failure, chronic obstructive pulmonary disease, type 2 diabetes, hypertension, peripheral arterial disease, who presented in consultation regarding hematuria. After catheter was placed, the patient's urine has cleared. Overall, from a urologic standpoint, the patient seems to be doing better. The patient did have an increase in his creatinine yesterday to 2.3 from 1.3 on admission. The patient had significant brownish urine output yesterday in the morning, which cleared up significantly overnight. I think patient did have a mild degree of intrinsic renal disease likely related to acute tubular necrosis. The patient's urine seems to be draining better with 1800 mL of clear yellow urine recorded. The patient was made n.p.o. in preparation for cystoscopy and bilateral retrograde pyelograms today. I reviewed this with the patient and would plan to proceed later this morning. Risks, benefits and alternatives of the procedure were discussed with patient and patient elected to proceed. cc: Trevon No MD [facility]ITALBrain
[2018-10-09 07:47] LABS: CALCIUM 8.5 mg/dL (8.8-10.2); CREATININE 1.8 mg/dL (0.7-1.2); POTASSIUM 4.3 mmol/L (3.5-5.1)
[2018-10-09] MEDS: MAXIPIME 2 GM in NS 100 ML IV SCH ×2 (08:11→20:55)
[2018-10-09] MEDS: ZYVOX PO SCH (08:13)
[2018-10-09] MEDS: PLETAL PO SCH ×2 (08:13→20:55)
[2018-10-09] MEDS: GLUCOTROL XL PO SCH ×3 (08:14→22:12)
[2018-10-09] MEDS: CRESTOR PO SCH (08:14)
[2018-10-09] MEDS: HUMULIN N SUBQ SCH (08:14)
[2018-10-09] MEDS: PULMICORT INH SCH ×2 (09:21→20:26)
[2018-10-09] MEDS ORDERED: XYLOCAINE-MPF 2% ONE (10:17)
--- NOTE | 2018-10-09 11:15 | INFECTIOUS DISEASE PROGRESS NO ---
DATE: 10/09/2018 PRESENT ILLNESS: The patient has gangrenous cellulitis of the right 3rd toe. Most likely this is due to peripheral vascular disease; however, a possible embolus from endocarditis may be a consideration. MEDICATIONS: The patient is on a combination of cefepime and Zyvox. PHYSICAL EXAMINATION: Vital Signs: Temperature is 98.3 degrees, pulse 117, respirations 22, blood pressure 131/60. General: This is a chronically ill-appearing elderly male. He is in no acute distress. Head, eyes, ears, nose, and throat: He appears to be able to hear my spoken words and he can see near objects. There is no drainage from his nose or ears. Neck: The patient did not have any pain when he moved his neck. Lungs: Clear to auscultation. Cardiovascular: Heart rate is regular with diminished peripheral pulses. Abdomen: Soft and nontender. Extremities: I removed the dressing from the patient's right foot. The 3rd toe has gangrenous cellulitis, there black for most of the toe with some surrounding erythema. The toe has an odor to it and it is tender. Neurologic: The patient seems to be in a slight delirium. He did not answer questions. He did not follow requests I made for him to move his extremities. LAB AND X-RAY: The patient's CBC shows a white count of 9570, hemoglobin 10.7, platelet count 415,000. Creatinine is 1.8. GFR is 37. Blood cultures are negative. Culture from the patient's gangrenous cellulitic toe is growing gram-negative rods. ASSESSMENT AND PLAN: Patient has gangrenous cellulitis of the right 3rd toe. I discontinued Zyvox but I plan to continue cefepime to treat the gram-negative dieudonne that has been isolated from the toe. I think it is unlikely the patient had a septic embolus to his toe from endocarditis, but I think it is a possibility and because of that, I went ahead and ordered an echocardiogram. COMORBIDITIES: The patient is elderly and he is a diabetic. He also has peripheral vascular disease, COPD, and congestive heart failure. cc: Piyush Rosales MD
[2018-10-09] MEDS ORDERED: DIPRIVAN 1% ONE (11:26)
[2018-10-09] MEDS ORDERED: MORPHINE ONE (11:36)
[2018-10-09] MEDS ORDERED: NEO-SYNEPHRINE ONE (11:37)
[2018-10-09] MEDS ORDERED: SODIUM CHLORIDE 0.9% 10 ML ONE (11:37)
[2018-10-09] MEDS ORDERED: ZOFRAN ONE (11:39)
--- NOTE | 2018-10-09 12:23 | Diag Imaging Result Doc PS360 ---
RETROGRADES 2 OR 3 FILMS - 10/09/2018 INDICATION: BILAT RETOR TECHNIQUE: Bilateral ureterograms. The exam was performed by the patient's urologist. Total fluoroscopy time was 19 seconds. 16 images were obtained. COMPARISON: CT abdomen pelvis 10/07/2018 FINDINGS: The ureters and renal collecting systems are normal bilaterally. IMPRESSION: Negative exam. Electronically signed by Chacho Harper 10/09/2018 12:21 PM
[2018-10-09] MEDS ORDERED: LR 500 ML ONE (12:34)
[2018-10-09] MEDS: DILAUDID ONE ×2 (12:44→12:58)
[2018-10-09] MEDS ORDERED: D50W SYRINGE ONE (17:13)
[2018-10-09] MEDS ORDERED: SOLU-MEDROL IV ONE (19:29)
[2018-10-09 20:14] LABS: ALLEN TEST YES; BE -2.7 mmoll (-3.0-3.0); BLOOD TYPE ARTERIAL; HCO3-(ACT) 22.7 mmoll (20.0-26.0); METHB 1.4 % (0.0-1.5); O2(CT) 13.7 mL/dL (15.0-23.0); PCO2(98.6) 40 mmHg (35-45); PO2(98.6) 56 mmHg (60-100); SAMPLE BLOOD; SAO2 92.4 % (95.0-100.0); THB 10.9 g/dL (11.5-17.4); pH(98.6) 7.36 (7.35-7.45)
--- NOTE | 2018-10-09 20:14 | PROGRESS NOTE ---
DATE: 10/09/2018 SUBJECTIVE: The patient has no major complaints, but he is a little bit drowsy and kind of out of it. In any case, the patient was evaluated and today he underwent cystoscopy, which I do not have the final results of, but the postop note looks like there was no active bleeding, no masses, nothing to that effect. OBJECTIVE: Vital Signs: Blood pressure is 119/52, heart rate is 100s to 120s. I do not think he has had a temperature, fortunately. Cardiovascular: Tachycardic. Pulmonary: I feel like he has wheezing on exam. GI: Soft, nontender, and nondistended. Bowel sounds are positive. : He does have kind of bloody urine in the Gregorio bag, which I think had cleared up yesterday, but now seems to have some component of hematuria. LABORATORY DATA: White count is 9, hemoglobin and hematocrit are 10 and 32, platelets 415,000. Creatinine is down to 1.8. Chest x-ray was clear. PROBLEM LIST: 1. Ischemic toe, with a little bit of infection associated, and I think cultures have grown out gram-negative dieudonne, for which we do not have final identification. He is currently on cefepime per Dr. Rosales. Vancomycin was stopped because he has renal dysfunction. I do not think he was on vancomycin. I think he was on Zyvox and that was stopped, but I do not think that would have caused renal failure, but since he has a gram-negative dieudonne. 2. Acute kidney injury. That seems to have improved. We will continue hydration and follow. He does have a history of congestive heart failure though, so we will have to be careful with fluids. 3. Chronic obstructive pulmonary disease. He has exacerbations. I am going to add some steroids and continue breathing treatments, although we will add Xopenex because of his relative tachycardia. Repeat chest x-ray tomorrow. 4. Diabetes. We will continue to follow closely. He is on sliding scale. DISPOSITION: We are still trying to stabilize him enough so he can follow up with his primary vascular surgeon, and we will continue to follow closely. cc: Kwadwo Bradley MD
[2018-10-09 20:16] LABS: MODALITY CANNULA
[2018-10-09] MEDS: ATROVENT NEB INH SCH ×2 (20:26→23:43)
[2018-10-09] MEDS: NEURONTIN PO SCH (20:55)
--- NOTE | 2018-10-09 21:00 | OPERATIVE NOTE ---
PROCEDURE DATE: 10/09/2018 PREOPERATIVE DIAGNOSIS: Gross hematuria. POSTOPERATIVE DIAGNOSIS: 1. Gross hematuria. 2. Bladder lesion. PROCEDURES PERFORMED: 1. Cystoscopy and clot evacuation. 2. Bilateral retrograde pyelograms. 3. Bladder biopsies and fulguration of bleeding. SURGEON: Dr. Trevon No. COMPLICATIONS: None. SPECIMENS REMOVED: Bladder biopsies. DRAINS: 20-Brazilian Gregorio catheter. COMPLICATIONS: None. BLOOD LOSS: 5 mL. OPERATIVE FINDINGS: The patient had a normal urethra with no evidence of any stricture disease or papillary lesions. The patient had a small amount of obstruction and hypertrophy of the prostate; however, the prostate was relatively short with a slightly high bladder neck. A small median lobe was visualized. On entering the bladder, the entirety of the bladder was inspected. The patient had some trabeculations present throughout, as well as several erythematous lesions on the posterior wall. No obvious papillary lesions or diverticula were seen at the base of the bladder; however, the patient did have a diverticulum at the dome. Entirety of the bladder was inspected with the 30 and 70 degree lenses with no obvious lesions present within the bladder concerning for obvious malignancy. Both ureteral orifices were difficult to visualize. They were slightly lateralized and behind trabeculations. Ultimately, the bilateral retrograde pyelograms were performed, which outlined normal ureters with no evidence of obstruction or hydronephrosis. The left-sided ureteral orifice had to be cannulated with a ZIPwire due to its location; however, no obvious obstruction was visualized. Good drainage was seen on postdrainage films. Multiple biopsies were taken of the posterior wall as there were erythematous areas there that appeared to be different than typically related to catheterization. These will be sent for pathology. INDICATIONS FOR PROCEDURE: Mr. Hager is a 68-year-old who presented to the hospital complaining of right foot pain. The patient has a long history of vascular surgery and underwent a stent recently in his lower extremity on the right in [facility]. The patient is concerning for necrotic foot lesion. The patient had a Gregorio catheter inserted as he was in urinary retention, and had a significant amount of hematuria afterwards. The patient's hematuria has persisted. The patient had a CT scan which showed no obvious obstruction, renal masses, or kidney stones. The patient presents today for cystoscopy and bilateral retrograde pyelograms. Risks, benefits, and alternatives for the surgical procedure were discussed with the patient, and the patient elected to proceed. DESCRIPTION OF PROCEDURE: After informed consent was obtained, the patient was brought to the operating room and placed on the operating table in supine position. He received preoperative antibiotics and underwent general anesthesia with LMA placement. The patient was placed into a dorsal lithotomy position and was prepped and draped in the usual sterile fashion. A preoperative time-out was performed with all parties in agreement, including anesthesia, surgical, and nursing staff. At which time a 21-Brazilian cystourethroscope was inserted through the urethra, showing normal caliber urethra and no evidence of any stricture disease. On entry into the bladder, the patient had a slightly high bladder neck, as well as evidence of hypertrophy with trilobar obstruction. The patient's prostate was short, but did have a small median lobe. The entire bladder was inspected which showed a diverticulum present at the dome of the bladder, which was wide-mouth. Multiple trabeculations and cellules were seen throughout the bladder. No obvious papillary lesions were seen, but there were some erythematous areas present on the posterior wall of the bladder with some evidence of bleeding from these lesions. Both ureteral orifices were visualized; however, they were slightly lateralized and were hidden behind trabeculations. An open-ended catheter was then passed through the scope, flushed of all bubbles, and the right ureteral orifice was able to be cannulated. We injected Omnipaque which outlined a normal distal ureter and collecting system. No evidence of any filling defects and the collecting system appeared to be delicate. Open-ended catheter was removed and good drainage was seen from the right ureteral orifice. Left ureteral orifice was slightly more difficult to visualize, and ultimately required using a ZIPwire to insert through the ureteral orifice. I was able to pass the open-ended catheter into the distal portion. Omnipaque was injected which outlined a normal ureter and collecting system with no evidence of hydronephrosis or filling defects. Good drainage was seen on postdrainage films. Following this, attention was then placed to performing biopsies within the bladder. 4 to 5 biopsies were performed in the posterior wall of the bladder where lesions were seen there were actively bleeding on initial inspection of the bladder. These were taken with the rigid biopsy forceps, and each lesion was then fulgurated. Good hemostasis was performed. The bladder was cycled multiple times with no evidence of active bleeding. The patient's bladder was left full and a 20-Brazilian Gregorio catheter was inserted through the urethra, inflated with 10 mL of sterile water, and placed to gravity drainage. Clear yellow urine was draining from the catheter. The patient's catheter was placed to gravity drainage. The patient was then awoken and was taken to Recovery in stable condition. The patient will be transferred back to the floor for continued monitoring by the hospitalist. cc: Trevon No MD MTDD
[2018-10-09] MEDS: XOPENEX NEB INH SCH (22:40)
[2018-10-10] MEDS: DILAUDID IV PRN ×4 (01:18→14:09)
[2018-10-10] MEDS: NS 1,000 ML IV SCH ×2 (01:18→16:12)
[2018-10-10 06:47] LABS: HEMATOCRIT 31.9 % (42.0-52.0); HEMOGLOBIN 10.6 g/dL (14.0-18.0); LYMPH# 0.43 X1000 (1.2-3.4); LYMPH% 3.4 % (20.5-51.1); MCH 31.8 PG (27-31); MCHC 33.2 g/dL (33-37); MCV 95.8 FL (81-99); MONO# 0.17 X1000 (0.11-0.59); MONO% 1.4 % (1.7-9.3); MPV 8.7 FL (7.4-10.4); NEUT# 11.92 X1000 (1.4-6.5); NEUT% 95.2 % (42.2-75.2); PLT 467 X1000 (130-400); RBC 3.33 XMIL (4.7-6.1); RDW 12.5 % (11.5-14.5); WBC 12.52 X1000 (4.8-10.8)
[2018-10-10] MEDS: NORCO-7.5 PO PRN ×2 (07:03→13:18)
[2018-10-10 07:07] LABS: CALCIUM 8.6 mg/dL (8.8-10.2); CREATININE 1.2 mg/dL (0.7-1.2); POTASSIUM 4.7 mmol/L (3.5-5.1)
[2018-10-10 07:39] LABS: BANDS 8 % (0-1); LYMPHS 4 % (21-51); SEGS 88 % (42-75)
[2018-10-10] MEDS: HUMULIN R SUBQ SCH ×4 (07:39→22:59)
[2018-10-10] MEDS: PULMICORT INH SCH ×2 (07:57→20:00)
[2018-10-10] MEDS: ATROVENT NEB INH SCH ×4 (07:57→20:00)
[2018-10-10] MEDS: XOPENEX NEB INH SCH ×4 (07:58→23:55)
--- NOTE | 2018-10-10 09:06 | PROGRESS NOTE ---
DATE: 10/10/2018 SUBJECTIVE: Postop day 1 from cystoscopy with bladder biopsies, clot evacuation, fulguration of bleeding, and bilateral retrograde pyelograms. The patient seems to be doing better from a urologic standpoint. The patient's urine is clear today. There is some reddish urine in the bag, however, urine in the tubing seems to be clear. The patient has been minimally ambulatory. The patient complains of some right lower extremity pain. States that he is tolerating a diet. The patient remains tachycardic. OBJECTIVE: Vital Signs: Temperature 98.1 degrees, heart rate 118, blood pressure 153/70, oxygen saturation 96% on room air. General: Mild distress related to lower extremity pain. Alert and oriented. Respiratory: Good respiratory effort without audible wheezing or rales. Abdomen: Soft, nontender, and nondistended. No palpable masses. : Normal phallus with bilateral testicles palpable without nodules. Urethral catheter in place with clear urine in the tubing with a small amount of reddish urine in the bag, without clots. LABORATORY DATA: White blood cell count 12.5, hemoglobin 10.6, hematocrit 31.9, platelets 467,000. Sodium 136, potassium 4.7, chloride 103, bicarb 15, BUN 25, creatinine 1.2, glucose 215, calcium 8.6. ASSESSMENT AND PLAN: Mr. Hager is a 68-year-old with coronary artery disease, congestive heart failure, chronic obstructive pulmonary disease, type 2 diabetes, hypertension, peripheral arterial disease, who presents in consultation regarding hematuria. The patient was taken to the operating room yesterday for cystoscopy, bilateral retrograde pyelograms, evacuation of clot, bladder biopsies and fulguration of bleeding. The patient has improved clinically from a urologic standpoint. His creatinine has down trended to 1.2 today. The patient was at 1.8 yesterday. The patient denies any bladder or penile pain. His catheter has been draining well. We tentatively plan to remove his catheter today. However, the patient continues to have minimal ambulation. I would recommend continued indwelling catheter at least until tomorrow, likely can be removed at that time. Did take some bladder biopsies yesterday. We will await those results to return. The patient had bilateral retrograde pyelograms, which were negative for obstruction with downtrending creatinine, unlikely obstruction is the cause of his elevated renal function. We will continue to monitor. Please call with questions or concerns. cc: Trevon No MD [facility]
[2018-10-10] MEDS: CRESTOR PO SCH (09:45)
[2018-10-10] MEDS: PLETAL PO SCH ×3 (09:45→20:03)
[2018-10-10] MEDS: PERIDEX MT SCH ×2 (09:45→20:03)
[2018-10-10] MEDS: GLUCOTROL XL PO SCH ×3 (09:45→20:03)
[2018-10-10] MEDS: MAXIPIME 2 GM in NS 100 ML IV SCH (09:46)
[2018-10-10] MEDS: HUMULIN N SUBQ SCH (09:46)
--- NOTE | 2018-10-10 15:00 | ECHO REPORT ---
ORDER DATE: 10/09/2018 INDICATION: Endocarditis. FINDINGS: 1. The right atrium appears normal in size at 3.6 cm. 2. Mild tricuspid regurgitation. 3. Normal RV size and systolic function. 4. No significant pulmonic insufficiency. 5. Moderate left atrial enlargement with a volume index of 38. 6. No mitral prolapse. Mild mitral regurgitation. 7. Normal LV size, end-diastolic dimension of 4.9 cm. Normal wall thicknesses with a posterior and interventricular septal wall thickness of 1.1 cm each. Normal LV systolic function, the estimated EF is 55%-60%. Echo contrast was administered on this patient and it was a somewhat difficult study but no obvious segmental abnormalities were identified. 8. The aortic valve opens well. It is trileaflet. No evidence of stenosis or insufficiency. 9. Aorta appears normal visualized segments. 10. No pericardial effusion seen. 11. There is no clear evidence of valvular vegetation. If clinical suspicion is high would consider a transesophageal echocardiogram. cc: MD Piyush Yap MD
[2018-10-10] MEDS ORDERED: MORPHINE IV PRN (16:29)
[2018-10-10] MEDS ORDERED: DILAUDID IV ONE (16:30)
[2018-10-10] MEDS: NITROGLYCERIN SL PRN ×2 (16:34→16:39)
[2018-10-10] MEDS ORDERED: NITROGLYCERIN ONE (16:45)
[2018-10-10] MEDS ORDERED: CARDIZEM IV ONE (17:21)
[2018-10-10] MEDS: LEVAQUIN PO SCH ×2 (17:23→17:26)
[2018-10-10] MEDS ORDERED: HALDOL IV ONE (17:33)
--- NOTE | 2018-10-10 18:03 | PROGRESS NOTE ---
DATE: 10/10/2018 SUBJECTIVE: The patient seems much more awake and alert today, but he is very confused to me, kind of inappropriate, loud. I am not sure what is causing these issues. He is a bit agitated, not sure if this is related to his pain medication. He has also developed tachycardia this evening and chest pain. EKG looks like it is an SVT. He has history of CAD and CHF. We have been attempting to get a echo, but we have not been able to do that. The patient is doing okay from that standpoint. DISPOSITION: Pending his clinical status. OBJECTIVE: Cardiovascular: Tachy. Pulmonary: Clear to auscultation bilaterally. GI: Soft, nontender, nondistended. Bowel sounds were positive. LABORATORY DATA: White count is 12, hemoglobin and hematocrit 10 and 31, platelets 467,000. Creatinine is down to 1.2 fortunately. PROBLEM LIST: 1. Acute kidney injury, multifactorial. We will continue IV fluids and follow. Check urine electrolytes. That has resolved. 2. Ischemic toe arterial insufficiency. He is on IV antibiotics. We will continue to follow. 3. Diabetes. We will follow blood sugars closely. 4. Hypertension. We will continue regular medications. 5. Hematuria with benign prostatic hypertrophy. Urology is following. I do not think cystoscopy showed any issues. Wonder if we can resolve his aspirin tomorrow, assuming there is no bleeding. 6. Supraventricular tachycardia, unclear etiology. We will initiate medications. I am still pushing to try to get an echo on him but we have been unsuccessful. 7. We will get a Cardiology consult and initiate Cardizem and follow. We will continue to follow closely. 8. Diabetes, appears to be stable. He has been placed on Levaquin. I have seen that cause confusion. Echo actually looked normal. DISPOSITION: I am not sure what we are going to do long-term for him, but we will see. I put in some Haldol, just go ahead and give him some Haldol. Disposition pending his clinical status. We are going to move him to CICU for closer monitoring. cc: Kwadwo Bradley MD
[2018-10-10] MEDS: NEURONTIN PO SCH ×2 (19:47→20:03)
--- NOTE | 2018-10-10 20:05 | INFECTIOUS DISEASE PROGRESS NO ---
DATE: 10/10/2018 PRESENT ILLNESS: The patient has gangrenous cellulitis of the right third toe. MEDICATIONS: The patient is on cefepime and Zyvox. PHYSICAL EXAMINATION: Vital Signs: Temperature 97.8 degrees, pulse 117, respirations 22, blood pressure 138/70. General: This is a somewhat ill-appearing, elderly male. He is in no acute distress. HEENT: He can hear my spoken words and see near objects. He does not have any white coating on his tongue. Neck: There is no pain when he moves his neck. Lungs: Clear to auscultation. Cardiovascular: Regular heart rate. Abdomen: Soft and nontender. Neurologic: The patient is awake. He can move his extremities. There is no tremor. LABORATORY DATA AND X-RAY: CBC shows a white count of 12,520, hemoglobin 10.6, platelet count 467,000. Creatinine 1.2, GFR 60. Culture from the patient's third toe grew Citrobacter. Blood and urine cultures are negative. I do not see a record yet of the patient's echocardiogram. The patient yesterday did have cystoscopy and clot evacuation, bladder retrograde programs and bladder biopsies and fulguration of bleeding. ASSESSMENT AND PLAN: As regarding the patient's toe, I am going to switch him to Levaquin and discontinue his current antibiotics. Also I am going to order an echocardiogram in case the patient had a septic embolus to the toe. Comorbidities: The patient is elderly, he is a diabetic, he also has peripheral vascular disease, COPD, congestive heart failure and urinary retention. At this time, I think I did order the patient's echocardiogram but the result is not yet back. cc: Piyush Rosales MD
[2018-10-10] MEDS: HALDOL IV PRN (22:59)
[2018-10-10] MEDS: CARDIZEM 125 MG/D5W 125 MG/125 ML IVPB IV SCH (23:00)
[2018-10-11] MEDS: HALDOL IV PRN (03:00)
[2018-10-11] MEDS ORDERED: NS NEB INH SCH ×2 (03:15→13:15)
[2018-10-11] MEDS ORDERED: SOLU-MEDROL IV ONE (03:17)
[2018-10-11] MEDS: XOPENEX NEB INH PRN ×2 (03:44→04:15)
[2018-10-11 05:05] LABS: ALLEN TEST YES; BE -6.3 mmoll (-3.0-3.0); BLOOD TYPE ARTERIAL; METHB 0.7 % (0.0-1.5); O2(CT) 15.6 mL/dL (15.0-23.0); O2HB 96.8 % (95.0-99.0); PCO2(98.6) 43 mmHg (35-45); PO2(98.6) 93 mmHg (60-100); SAMPLE BLOOD; SAO2 99.9 % (95.0-100.0); THB 11.4 g/dL (11.5-17.4); pH(98.6) 7.28 (7.35-7.45)
[2018-10-11 05:07] LABS: MODALITY NRB
[2018-10-11 05:55] LABS: BASO# 0.03 X1000 (0.0-0.2); BASO% 0.1 % (0.0-0.8); EOS# 0.01 X1000 (0.0-0.7); HEMATOCRIT 33.9 % (42.0-52.0); HEMOGLOBIN 11.6 g/dL (14.0-18.0); IMM GRAN# 0.05 X1000 (0.0-0.04); IMM GRAN% 0.2 % (0.0-0.5); LYMPH# 0.51 X1000 (1.2-3.4); LYMPH% 2.5 % (20.5-51.1); MCHC 34.2 g/dL (33-37); MCV 93.6 FL (81-99); MONO# 1.07 X1000 (0.11-0.59); MONO% 5.2 % (1.7-9.3); MPV 8.8 FL (7.4-10.4); NEUT# 18.89 X1000 (1.4-6.5); PLT 607 X1000 (130-400); RBC 3.62 XMIL (4.7-6.1); RDW 12.5 % (11.5-14.5); WBC 20.56 X1000 (4.8-10.8)
[2018-10-11 06:05] LABS: CREATININE 1.3 mg/dL (0.7-1.2); POTASSIUM 4.2 mmol/L (3.5-5.1)
[2018-10-11 06:08] LABS: BANDS 6 % (0-1); LYMPHS 4 % (21-51); MONO 2 % (1-9); SEGS 88 % (42-75)
[2018-10-11] MEDS: HUMULIN R SUBQ SCH ×4 (06:11→20:31)
[2018-10-11] MEDS: CARDIZEM 125 MG/D5W 125 MG/125 ML IVPB IV SCH ×2 (07:52→17:02)
--- NOTE | 2018-10-11 07:55 | Diag Imaging Result Doc PS360 ---
EXAM: CHEST-PORTABLE INDICATION: SOB TECHNIQUE: One view COMPARISON: 10/08/2018 FINDINGS: There has been development of interstitial infiltrates at the mid and lower lung zones bilaterally, worse on the right most compatible with pulmonary edema +/- pneumonia. No other new consolidations are identified. Cardiac silhouette is stable. IMPRESSION: Interval development of interstitial infiltrates bilaterally, worse on the right. Electronically signed by Devin Munguia 10/11/2018 7:52 AM
[2018-10-11] MEDS: XOPENEX NEB INH SCH ×5 (08:18→23:36)
[2018-10-11] MEDS: ATROVENT NEB INH SCH ×6 (08:18→23:36)
[2018-10-11] MEDS: PULMICORT INH SCH ×2 (08:18→19:35)
[2018-10-11] MEDS: HUMULIN N SUBQ SCH ×2 (09:00→20:32)
[2018-10-11] MEDS: GLUCOTROL XL PO SCH ×2 (09:00→20:26)
[2018-10-11] MEDS: PLETAL PO SCH ×2 (09:29→20:24)
[2018-10-11] MEDS: ASPIRIN EC PO SCH (09:29)
[2018-10-11] MEDS: CRESTOR PO SCH (09:29)
[2018-10-11] MEDS: LEVAQUIN PO SCH (09:29)
[2018-10-11] MEDS: PERIDEX MT SCH ×2 (09:30→20:28)
--- NOTE | 2018-10-11 10:15 | PROGRESS NOTE ---
DATE: 10/11/2018 SUBJECTIVE: The patient became agitated yesterday and slightly confused and inappropriate to nurses. The patient developed tachycardia of 150, was evaluated with EKG and appeared to have supraventricular tachycardia. The patient was subsequent transferred to the CICU and started on a Cardizem drip. The patient clinically seems to be slightly improved today, but remains tachycardic and almost looks like atrial fibrillation with heart rate anywhere from 130 to 150, and seems to be irregularly irregular on palpation of his pulse. The patient's indwelling catheter drained clear yellow urine. OBJECTIVE: Vital Signs: Temperature 97.5 degrees, heart rate 146, blood pressure 157/77, oxygen saturation 99% on non-rebreather. General: Improved mentation, alert and oriented, mild distress. Respiratory: Good respiratory effort without audible wheezing or rales. Slightly decreased lung sounds in the bases. Cardiovascular: Tachycardia present with irregularly irregular rhythm. Heart rate fluctuating up from 130 to 154 bpm. Abdomen: Soft, nontender, nondistended. No palpable masses. : No suprapubic tenderness. No CVA tenderness. Urethral catheter in place draining clear yellow urine. Musculoskeletal: Right lower extremity foot wrapped with dressing. LABS: White blood cell count 20.56, hemoglobin 11.6, hematocrit 33.9, platelets 607. Sodium 135, potassium 4.2, chloride 101, bicarbonate 19. BUN 31, creatinine 1.3, glucose 312. ASSESSMENT/PLAN: Mr. Hager is a 68-year-old with coronary artery disease, congestive heart failure, chronic obstructive pulmonary disease, type 2 diabetes, hypertension, peripheral artery disease, who presented in consultation regarding hematuria. The patient was taken to the operating room on for cystoscopy, bilateral retrograde pyelograms, evacuation of blood clots and bladder biopsies with fulguration of bleeding. The patient became agitated yesterday and aggressive with nursing. Ultimately, he required transfer to the CICU, due to tachycardia and concern for supraventricular tachycardia versus atrial fibrillation. The patient continues to be tachycardic with irregularly irregular rhythm. Creatinine seems to be stable at 1.3 from 1.2 yesterday. White blood cell count did increase up to 20,000. The patient clinically seems to be doing better. He denies any pain. He is less agitated today. His urethral catheter is in place draining clear yellow urine. Uncertain of what is driving his symptoms; likely related to his underlying foot ischemia. Tentatively, it was planned to remove his catheter today, but with change in clinical status yesterday afternoon, recommended continued indwelling catheter at this time. If the patient begins to improve, can consider removing his catheter over the weekend or early next week. We will keep this in for close monitoring of intake/output as he is getting a Cardizem drip and is minimally ambulatory. We will continue to monitor. Please call with questions or concerns. cc: Trevon No MD MTDD
[2018-10-11] MEDS: SOLU-MEDROL IV SCH ×2 (12:09→20:26)
--- NOTE | 2018-10-11 13:11 | CONSULTATION ---
DATE OF CONSULTATION: 10/11/2018 IMPRESSION: 1. Supraventricular tachycardia, probably atrial fibrillation with rapid ventricular rate. 2. Peripheral vascular disease. 3. Right foot cellulitis. 4. Recent hematuria. Patient is status post cystoscopy, bilateral retrograde pyelograms, and evacuation of clots with bladder biopsies and fulguration of bleeding. This was done on 10/09/2018. 5. Atherosclerotic coronary disease. 6. Chronic systolic heart failure. 7. Chronic obstructive pulmonary disease. 8. Type 2 diabetes mellitus. 9. Hypertension. 10. Some degree of encephalopathy, etiology not clear. RECOMMENDATIONS: 1. Continue intravenous Cardizem and transition to oral Cardizem increasing dose. 2. Add low-dose beta fanta. 3. If atrial fibrillation persists, consider anticoagulation with Lovenox. However, given recent issues with hematuria, we will hold off on this for now. 4. Echocardiography once heart rate is controlled. 5. If atrial fibrillation is persistent, may consider using amiodarone to try and medically cardiovert him and control rate. HISTORY: This 68-year-old white male with past history of atherosclerotic coronary disease, chronic systolic heart failure, COPD, type 2 diabetes mellitus, and hypertension as well as peripheral vascular disease was admitted a week ago with right foot cellulitis. He is being treated with dressing changes and parenteral antibiotics. He developed hematuria and had cystoscopy performed as outlined above. Yesterday afternoon, he developed narrow complex tachycardia and was moved to the CIC unit. He was started on intravenous Cardizem. Many of his ECG strips appeared to be more likely atrial fibrillation with rapid ventricular rate. His heart rate is still elevated. He is not aware of his arrhythmia. He denies chest discomfort or dyspnea. He has been confused and agitated at times. He is not aware of any previous cardiac rhythm problems in the past. PAST MEDICAL HISTORY: 1. Atherosclerotic coronary disease. 2. Chronic systolic heart failure. 3. Chronic obstructive pulmonary disease. 4. Type 2 diabetes mellitus. 5. Hypertension. 6. Peripheral vascular disease involving the right lower extremity. 7. Right foot cellulitis. PAST SURGICAL HISTORY: Right femoral artery stent. ALLERGIES: He is allergic or intolerant to penicillin. MEDICATIONS PRIOR TO ADMISSION: As listed. It is noteworthy that he was on Coreg 25 mg twice daily prior to admission as well as Cardizem CD 120 mg daily. SOCIAL HISTORY: He lives alone. He has a history of smoking 1 pack of cigarettes per day since he was a teenager. He drinks rare alcoholic beverage. 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 FAMILY HISTORY: Positive for diabetes mellitus and thyroid disease. REVIEW OF SYSTEMS: Pulmonary: Negative for dyspnea, but he has had some wheezing. Gastrointestinal: Negative. Constitutional: Negative. Remainder of review of systems negative/noncontributory with 14 total systems reviewed. PHYSICAL EXAMINATION: General: This is an older white male in no distress on supplemental oxygen per mask. Vital Signs: Blood pressure 112/66, heart rate 141 and regular, and oxygen saturation 97%. HEENT: Extraocular muscles appear intact. Mucous membranes are moist. Neck: Supple without discernible jugular distention. Lungs: Auscultation of chest reveals few scattered expiratory wheezes. There are no rales. Heart: Cardiac exam reveals an irregular tachycardia without appreciable murmur or gallop. Abdomen: Soft. Bowel sounds audible. Extremities: Without edema. Patient has dressing in place around the right foot. Neurologic: Reveals him to be awake and responsive. He moves all 4 extremities equally well. Speech is fluent. PERTINENT DATA: Twelve lead EKG obtained 10/10/2018 at 16:38 demonstrates supraventricular tachycardia, cannot exclude septal infarct of undetermined age, and ST and T-wave abnormality possibly related to heart rate. LABORATORY DATA: White blood cell count 20.56, hematocrit 33.9, hemoglobin 11.6 and platelet count 607,000. Sodium 135, potassium 4.2, chloride 101, carbon dioxide 19, BUN 31, creatinine 1.3, and glucose 312. cc: Meño Coello MD
[2018-10-11] MEDS: LASIX IV SCH (13:26)
[2018-10-11] MEDS: LOPRESSOR PO SCH ×2 (13:26→20:24)
[2018-10-11] MEDS: CARDIZEM PO SCH ×2 (13:26→20:25)
--- NOTE | 2018-10-11 13:28 | PROGRESS NOTE ---
DATE: 10/11/2018 SUBJECTIVE: Patient has no focal complaints. He seems like he is mentating better. He still seems agitated though and in pain which has been an issue for him. He has got an ischemic foot. OBJECTIVE: Blood pressure is in the 150s, heart rate of 20, respiratory rate of 20, blood pressure 112/66, temperature 97.5 degrees. No fevers.Cardiovascular: Regular rate and rhythm. Pulmonary: Bilateral breath sounds, clear to auscultation. GI: Soft, nontender, nondistended. Bowel sounds are positive. LABORATORY DATA: White count up to 20,000. H H 11 and 33, platelets 607,000, pH 7.28, pCO2 43, PaO2 93. Creatinine is up a little bit at 1.3, but has overall improved. Glucose is 312. PROBLEM LIST: 1. New issues of acute hypoxic respiratory failure. It looks like it is probably related to pulmonary edema, probably related to atrial fibrillation. I believe he has a history of atrial fibrillation. He has previously been on Coreg and Cardizem but despite those medications, I think they may have been held because of hypotension in case he is very tachycardic. Cardiology is following. It looks like they added p.o. Cardizem and p.o. Lopressor, as his heart rate is still in the 150s. We will initiate diuretics as well. 2. Atrial fibrillation, supraventricular tachycardia (SVT). We will continue Cardizem, metoprolol. We may have to add digoxin. 3. Ischemic toe with infection and arterial insufficiency. The patient is on IV antibiotics. 4. Type 2 diabetes is now not under control with steroids. 5. Chronic obstructive pulmonary disease exacerbation. We will continue to follow. He has been placed on steroids and breathing treatments. We have initiated Xopenex because of his relative tachycardia but we are going to have to continue that because he is still wheezing pretty significantly. 6. Encephalopathy. I am not sure if he has some baseline issues. I did go ahead and order head CT although he has a nonfocal exam. DISPOSITION: 1. He is still critically ill, atrial fibrillation, on a Cardizem drip or had been up to recently. I will get a Pulmonary opinion too since he has got respiratory failure and we will follow. Condition is still somewhat guarded. 2. Hematuria, Dr. No's finding. I am not sure when we can resume blood thinners. I will need to discuss with him about that. We will continue to follow. cc: Kwadwo Bradley MD MTDD
--- NOTE | 2018-10-11 15:56 | Diag Imaging Result Doc PS360 ---
EXAM: CT HEAD W/O CONTRAST INDICATION: encephalopathy TECHNIQUE: This exam was performed using automated exposure control, adjustment of mA or kV according to patient size, and/or use of iterative reconstruction technique. COMPARISON: 05/24/2015 FINDINGS: There is mild stable brain atrophy diffusely and there are chronic lacunar infarcts involving the thalamus on the right as well as the bran on the left. There is no definite acute infarct given the limited sensitivity of CT versus MRI. There is no discrete intracranial mass, mass effect, or intracranial hemorrhage. There is right maxillary sinus mucosal disease with complete opacification. IMPRESSION: 1.Stable chronic changes but no evidence of acute intracranial pathology. 2.Right maxillary sinus disease. Electronically signed by Devin Munguia 10/11/2018 3:54 PM
[2018-10-11] MEDS ORDERED: LOPRESSOR PO ONE (17:13)
--- NOTE | 2018-10-11 19:12 | CONSULTATION ---
DATE OF CONSULTATION: 10/11/2018 REQUESTING PROVIDER: Dr. Joss Bradley. REASON FOR CONSULTATION: Respiratory failure. HISTORY OF PRESENT ILLNESS: This is a 68-year-old male with a medical history of COPD with ongoing tobacco abuse, coronary artery disease, systolic congestive heart failure, diabetes mellitus type 2, hypertension, hyperlipidemia, right femoral arterial disease, gross hematuria with urine retention and bladder lesion, and ongoing gangrenous cellulitis of the right 3rd toe. He initially presented to the ER with right foot cellulitis on 10/06/2018. He has been admitted for further evaluation and management since then. During this hospital stay, he developed gross hematuria and had bladder biopsy done on 10/09/2018. He also had intermittent tachycardia which has been worsened and became persistent since yesterday, and since last night, his respiratory status became progressively worsened, too. He required a non-rebreather with FiO2 100% eventually. At the time of my examination, the patient is breathing through Ventimask with FiO2 50%. His pulse rate stays around 150 to 160. He is on Cardizem drip at 20 mL/hr. He appears anxious and agitated at times, although he keeps stating that he is fine and he has no complaint at this time. He denies cough, wheezing, chest pain, or shortness of breath. PAST MEDICAL AND SURGICAL HISTORY: 1. COPD with ongoing tobacco abuse, on Ventolin at home. 2. Coronary artery disease. 3. Systolic congestive heart failure. 4. Diabetes mellitus type 2. 5. Hypertension. 6. Hyperlipidemia. 7. Right femoral arterial disease status post right femoral artery stent placement in 06/2018. 8. Gross hematuria and urine retention with bladder lesion, status post bladder biopsy on 10/09/2018. 9. Ongoing gangrenous cellulitis of the right 3rd toe. SOCIAL HISTORY: The patient is and lives alone. He has an indoor cat. He smokes 1 pack per day for over 50 years. He drinks alcohol socially. He has no history of illicit drug use. FAMILY HISTORY: Positive for diabetes, hypertension, and myocardial infarction. ALLERGIES: Penicillins. REVIEW OF SYSTEMS: A 10-point review of systems was conducted and the pertinent is listed within the HPI, otherwise noncontributory. PHYSICAL EXAMINATION: Vital Signs: Temperature 97.5 degrees, blood pressure 112/66, pulse 141, respiratory rate 20, oxygen saturation 97% on non-rebreather 100% with FiO2 of 100%. General: The patient appears anxious. He has mild respiratory distress with no accessory muscle use at this time. He is breathing through a Ventimask with FiO2 of 50%. His pulse rate is between 150 to 160 at this time. HEENT: Atraumatic. Trachea midline. Mucosa pink and slightly dry. Respiratory: Mildly labored. Symmetrical excursion. Auscultation revealed diminished breathing sounds bibasilarly with prolonged expiratory phase and bilateral expiratory wheezing. Cardiovascular: Irregular tachycardia. S1, S2 noted. Gastrointestinal: Normoactive bowel sounds in all 4 quadrants. Soft, nontender, nondistended. Extremities: Left lower extremity no pedal edema noted. Right lower extremity covered with dressing which is dry, clean, and intact. No BLE cyanosis or clubbing. Neurologic: Alert and oriented x3. Speech fluent. Follow commands. Anxious and agitated at times. LABORATORY DATA: White blood cell 20.56, hemoglobin 11.6, hematocrit 33.9, platelet 607,000. Sodium 135, potassium 4.2, chloride 101, carbon dioxide 19, BUN 31, creatinine 1.3, glucose 312. ABG: pH 7.28, pCO2 of 43, pO2 of 93, HCO3 of 20.0, base excess -6.3, and oxyhemoglobin 96.8. ASSESSMENT: This is a 68-year-old male with medical history of chronic obstructive pulmonary disease with ongoing tobacco abuse, coronary artery disease, systolic congestive heart failure, type 2 diabetes, hypertension, hyperlipidemia, right femoral arterial disease, gross hematuria, urine retention with bladder lesion, and ongoing gangrenous cellulitis of the right 3rd toe. 1. Acute hypoxemic respiratory failure secondary to chronic obstructive pulmonary disease exacerbation. 2. Chronic obstructive pulmonary disease exacerbation. 3. Atrial fibrillation with rapid ventricular rate. 4. Right 3rd toe gangrenosum cellulitis. 5. Tobacco abuse. PLAN: 1. Continue supplemental oxygen. 2. Start BiPAP at bedtime and as needed. 3. Continue antibiotics, steroids, and bronchodilators. 4. Follow up with ABGs, CBC, BMP, proBNP, and chest x-ray. 5. Highly recommend the patient to quit smoking. The patient states that he is ready, and he would like to try smoking cessation without medicine first. 6. Dr. Rosales, Dr. No, Dr. Martinez, and Dr. Coello are on board. 7. Continue GI and DVT prophylaxis. 8. Further recommendations pending hospital course. Thank you for the courtesy of this consult. Dictated by ALEX Brown for Alexander Jimenez MD cc: ALEX Brown MD [facility]
[2018-10-11] MEDS: NEURONTIN PO SCH (20:24)
[2018-10-12] MEDS: LASIX IV SCH (01:14)
[2018-10-12] MEDS: CARDIZEM PO SCH ×4 (01:14→21:46)
[2018-10-12] MEDS: SOLU-MEDROL IV SCH ×3 (03:30→21:46)
[2018-10-12] MEDS: HUMULIN R SUBQ SCH ×4 (06:27→21:47)
--- NOTE | 2018-10-12 07:24 | Diag Imaging Result Doc PS360 ---
EXAM: CHEST-1 VIEW HISTORY: SOB TECHNIQUE: Chest single view COMPARISON: 10/11/2018 FINDINGS: The lungs are well expanded. The heart is not enlarged. The vessels are less distended. There are no infiltrates. No effusion identified. IMPRESSION: Interval improvement Electronically signed by Louis Molina 10/12/2018 7:22 AM
[2018-10-12] MEDS: ATROVENT NEB INH SCH ×5 (07:38→23:45)
[2018-10-12] MEDS: XOPENEX NEB INH SCH ×5 (07:39→23:45)
[2018-10-12] MEDS: PULMICORT INH SCH ×2 (07:39→20:36)
[2018-10-12 08:00] LABS: HEMATOCRIT 32.3 % (42.0-52.0); HEMOGLOBIN 11.3 g/dL (14.0-18.0); IMM GRAN# 0.02 X1000 (0.0-0.04); IMM GRAN% 0.1 % (0.0-0.5); LYMPH# 0.54 X1000 (1.2-3.4); MCH 31.9 PG (27-31); MCV 91.2 FL (81-99); MONO# 0.58 X1000 (0.11-0.59); MONO% 4.3 % (1.7-9.3); MPV 8.6 FL (7.4-10.4); NEUT% 91.6 % (42.2-75.2); PLT 574 X1000 (130-400); RBC 3.54 XMIL (4.7-6.1); RDW 12.3 % (11.5-14.5); WBC 13.64 X1000 (4.8-10.8)
--- NOTE | 2018-10-12 08:05 | INFECTIOUS DISEASE PROGRESS NO ---
DATE: 10/12/2018 PRESENT ILLNESS: The patient has gangrenous cellulitis of the right third toe. It appears this is due to peripheral vascular disease and not due to septic emboli from endocarditis. The patient has a leukocytosis. I think this is due to recent starting of intravenous steroids. MEDICATIONS: The patient is on Levaquin. This is the second day of treatment with it. PHYSICAL EXAMINATION: Vital Signs: Temperature is 98.6 degrees, pulse 102, respirations 18, blood pressure is 135/69. General: This is an ill-appearing, elderly male. He is in no acute distress. HEENT: He can hear my spoken words and see near objects. He does not have any white patches on his tongue. Neck: There is no stiffness. Lungs: Clear to auscultation. Cardiovascular: Heart rate is irregular. Abdomen: Soft and nontender. Extremities: The patient has a large dressing on the right foot. I plan to remove the dressing tomorrow on rounds, and see how his toe is progressing. Neurologic: The patient is awake. He can move his extremities. There is no tremor. IMAGING AND LABORATORY DATA: Chest x-ray shows no infiltrates, and there is improvement in the pulmonary venous congestion. The patient's CBC shows a white count of 20,560, hemoglobin 11.6, and platelet count is 607,000. Blood gases show a pH of 7.28, a PO2 of 93, a pCO2 of 43. Creatinine is 1.3. GFR is 55. Chest x-ray shows no infiltrates, and there is improvement in the pulmonary venous congestion. Echocardiogram shows no vegetations. ASSESSMENT AND PLAN: For right now, I am going to continue with Levaquin to treat the patient's gangrenous cellulitis, which grew out Citrobacter. As mentioned above, I think the white blood cell count increases due to the fact that the patient has been started on steroids. The patient's gangrenous toe is secondary to peripheral vascular disease rather than a septic embolus in view of the fact that the echocardiogram does not show any vegetations. COMORBIDITIES: The patient is elderly. He has peripheral vascular disease. He also is a diabetic, and he has COPD, congestive heart failure, and urinary retention, which required placement of a Gregorio catheter. cc: Piyush Rosales MD [facility]ITAL[facility]rain
[2018-10-12 08:10] LABS: CALCIUM 9.4 mg/dL (8.8-10.2); CREATININE 1.5 mg/dL (0.7-1.2); MAGNESIUM 2.1 mg/dL (1.5-2.7); POTASSIUM 3.6 mmol/L (3.5-5.1)
[2018-10-12 08:16] LABS: LYMPHS 2 % (21-51); MONO 2 % (1-9); SEGS 96 % (42-75)
[2018-10-12] MEDS: ASPIRIN EC PO SCH (08:34)
[2018-10-12] MEDS: LEVAQUIN PO SCH (08:35)
[2018-10-12] MEDS: GLUCOTROL XL PO SCH ×2 (08:35→21:46)
[2018-10-12] MEDS: PERIDEX MT SCH ×2 (08:36→21:46)
[2018-10-12] MEDS: LOPRESSOR PO SCH ×2 (08:36→21:46)
[2018-10-12] MEDS: PLETAL PO SCH ×2 (08:37→21:46)
[2018-10-12] MEDS: CRESTOR PO SCH (08:37)
[2018-10-12] MEDS: ZOFRAN IV PRN ×2 (08:45→21:55)
[2018-10-12] MEDS: HUMULIN N SUBQ SCH ×2 (08:50→21:47)
--- NOTE | 2018-10-12 08:53 | PROGRESS NOTE ---
DATE: 10/12/2018 SUBJECTIVE: The patient remains in the CICU. Clinically, he has been doing better. The patient did have persistent tachycardia yesterday, which has improved. He was with a heart rate of 140 for most of yesterday. It has been in the high 80s to low 100s since then. He says that his shortness of breath has improved. However, he remains on a Venturi mask. He has had good urinary output with clear yellow urine. Denies any abdominal or suprapubic pain. OBJECTIVE: Vital Signs: Temperature of 97.7 degrees, heart rate 101, blood pressure of 121/58, oxygen saturation 98% on Venturi mask with an oxygen flow of 50 and an oxygen flow rate of 15. General: No acute distress. Resting comfortably in bed. Alert and oriented x3. Respiratory: Good respiratory effort with no audible wheezing or rales. The patient is wearing a Venturi mask. Cardiovascular: Low-grade tachycardia. He has 1+ lower extremity edema. Abdomen: Soft, nontender, nondistended. : Urethral catheter in place with clear yellow urine. No suprapubic tenderness. No CVA tenderness. Labs: White blood cell count 13.6, hemoglobin 11.3, hematocrit 32.3, platelets 474,000. Sodium 136, potassium 3.6, chloride 98, bicarb 23, BUN 40, creatinine 1.5, glucose 109. Pro-BNP 23,768. ASSESSMENT AND PLAN: Mr. Hager is a 68-year-old gentleman with coronary artery disease, congestive heart failure, chronic obstructive pulmonary disease, type 2 diabetes, hypertension, and peripheral artery disease, who initially presented in consultation regarding hematuria. The patient was taken to the operating room on for cystoscopy, bilateral retrograde pyelograms, as well as bladder biopsies and evacuation of blood clots from the bladder. The patient clinically is improving. He was transitioned to the CICU on Saturday night. His heart rates improved significantly. Yesterday, he was mostly in the 140s. However, this improved into the low 100s currently. The patient's infection count has improved. He is at 13,000 from 20,000. His respiratory status seems to have improved as well. However, he remains on a Venturi mask. He denies any shortness of breath. The patient's urethral catheter is draining clear yellow urine with no evidence of any clots. The patient seems to be getting a significant amount of cardiac medications due to his congestive heart failure. It does look like the patient received 2 doses of Lasix yesterday, but no continued orders for this. The patient's urine looks crystal clear this morning. As long as patient continues to get diuresis, we will keep the indwelling catheter in place. The hope is that this can be removed in the coming days if the patient is able to be more ambulatory. The patient is still followed by infectious disease, pulmonology, cardiology, and the hospitalist service. We will continue to monitor. Please call with questions or concerns. cc: Trevon No MD MTDD
--- NOTE | 2018-10-12 10:58 | PROGRESS NOTE ---
DATE: 10/12/2018 SUBJECTIVE: The patient converted to sinus rhythm yesterday afternoon and had brief recurrence of atrial fibrillation this morning. He presently is in sinus rhythm. He denies chest discomfort or dyspnea. OBJECTIVE: Vital Signs: Blood pressure 121/58, heart rate 96, oxygen saturation 98% on oxygen mask. There is no significant jugular venous distention. Chest is clear to auscultation. Cardiac examination reveals a regular rate and rhythm without appreciable murmur or gallop. There is no evidence of peripheral edema. Laboratory Data: Includes a white blood cell count 13.64, hematocrit 32.3, hemoglobin 11.3, platelet count 574,000. Sodium 136, potassium 3.6, chloride 98, carbon dioxide 23, BUN 40, creatinine 1.5. IMPRESSION: 1. Intermittent atrial fibrillation. Patient is currently in sinus rhythm. 2. Atherosclerotic coronary artery disease. Most recent echocardiography last year indicated normal left ventricular ejection fraction. 3. Right foot cellulitis. 4. Peripheral vascular disease. 5. Chronic obstructive pulmonary disease. 6. Type 2 diabetes mellitus. 7. Hypertension. RECOMMENDATIONS: 1. Continue oral Cardizem and oral beta fanta. 2. Echocardiography. cc: Meño Coello MD
[2018-10-12] MEDS ORDERED: LACTULOSE PO ONE (15:13)
[2018-10-12] MEDS ORDERED: LACTULOSE PO PRN (15:13)
--- NOTE | 2018-10-12 15:47 | PROGRESS NOTE ---
DATE: 10/12/2018 SUBJECTIVE: He looks a little bit better today to me. Breathing is better. He has converted to sinus rhythm. He is still somewhat weak and tired. OBJECTIVE: Vital Signs: Blood pressure was 142/50, heart rate of 102, respiratory rate 18, temperature 97.4, 98% on 50%. General: He had an episode of emesis this morning. Cardiovascular: Regular rate and rhythm. Pulmonary: Bilateral breath sounds. Clear to auscultation. Gastrointestinal: Soft, nontender, nondistended. Bowel sounds were positive. Abdomen: His abdomen to me seemed distended. LABORATORY DATA: White count is down to 13 from 20,000, hemoglobin and hematocrit 11 and 32, platelets 574,000. Creatinine is trending upwards again 1.5, with a proBNP of 23,768. Chest x-ray though is improved. Head CT shows some right maxillary sinus disease, but no acute pathology. PROBLEM LIST: 1. Acute hypoxic respiratory failure, likely pulmonary edema. This is improved with diuretics. I am not giving him any more diuretics because his kidney function is kind of fluctuating. Otherwise, I would continue that, but overall is improved. 2. Atrial fibrillation. SVTs spontaneously resolved. He is now on p.o. Cardizem and metoprolol. We will continue those. Appreciate Pulmonary management. 3. Ischemic foot with gangrenous changes and cellulitis, positive for Citrobacter freundii, and he is on antibiotics for that, he is on Levaquin per Dr. Rosales. 4. Chronic obstructive pulmonary disease exacerbation. I think we can wean his steroids and his white count is coming down. 5. Gastrointestinal. He has some nausea, vomiting, but I am suspicious he is probably constipated. He has not been eating well. We will initiate Clinimix and follow closely. I will start a bowel regimen as well because I think that is probably what is causing his issues. 6. Disposition. He is still very weak. Initially, plans were made to stabilize him to transfer, but at this point I do not know if he is going to need rehab or what other potential things he may need, I do not know. I do not think PT is working with him, but I think at this point since he seems to be improving I think we can continue that. They have been consulted. PT saw him a couple days ago and he did pretty well, 85 feet, full weightbearing front wheel walker, so we will continue that and follow closely. DISPOSITION: Hopefully we can get him home or discharged and then follow up closely with Dr. Tripathi who is his primary vascular surgeon. cc: Kwadwo Bradley MD
[2018-10-12] MEDS: CLINIMIX E 4.25%-5% SOLUTION 1,000 ML IV SCH (16:19)
[2018-10-12] MEDS: MIRALAX PO SCH (16:19)
[2018-10-12] MEDS: NEURONTIN PO SCH (21:46)
[2018-10-13] MEDS: CARDIZEM PO SCH ×4 (02:15→20:02)
[2018-10-13] MEDS: SOLU-MEDROL IV SCH (05:14)
[2018-10-13 05:57] LABS: HEMATOCRIT 33.2 % (42.0-52.0); HEMOGLOBIN 11.6 g/dL (14.0-18.0); MCH 32.5 PG (27-31); MCHC 34.9 g/dL (33-37); MPV 8.7 FL (7.4-10.4); RBC 3.57 XMIL (4.7-6.1); RDW 12.4 % (11.5-14.5); WBC 14.67 X1000 (4.8-10.8)
[2018-10-13] MEDS: CLINIMIX E 4.25%-5% SOLUTION 1,000 ML IV SCH ×2 (06:06→20:10)
[2018-10-13] MEDS: HUMULIN R SUBQ SCH ×4 (06:23→20:05)
[2018-10-13 06:37] LABS: CALCIUM 9.5 mg/dL (8.8-10.2); CREATININE 1.3 mg/dL (0.7-1.2); POTASSIUM 3.5 mmol/L (3.5-5.1)
--- NOTE | 2018-10-13 06:40 | Diag Imaging Result Doc PS360 ---
EXAM: CHEST-1 VIEW HISTORY: SOB TECHNIQUE: Portable chest single view COMPARISON: 10/12/2018 FINDINGS: The lungs are well expanded. The heart is not enlarged. The vessels are not distended. There are no infiltrates. No effusion identified. There is a granuloma in the lower left lung. IMPRESSION: Negative exam. Electronically signed by Louis Molina 10/13/2018 6:37 AM
--- NOTE | 2018-10-13 06:41 | INFECTIOUS DISEASE PROGRESS NO ---
DATE: 10/13/2018 PRESENT ILLNESS: The patient has gangrenous cellulitis of the right 3rd toe. A culture taken from the gangrenous toe grew out Citrobacter. MEDICATIONS: This is the third day of treatment with Levaquin. PHYSICAL EXAMINATION: Vital Signs: Temperature is 98.2 degrees, pulse 95, respirations 21, blood pressure 144/79. General: This is an ill-appearing elderly male. He is in no acute distress. Head/eyes/ears/nose/throat: He can hear my spoken words and see near objects. He does not have any white coating on his tongue. Neck: There is no pain when he moves his neck. Lungs: Clear to auscultation. Cardiovascular: Heart rate is irregular. Abdomen: Soft and nontender. Extremities: I removed the patient's dressing from the right foot. The 3rd right toe had gangrenous cellulitis. The toe was black. There is a slight seropurulent drainage. The necrosis does not appear to be spreading. Neurologic: The patient is alert. He can move his extremities. There is no tremor. LAB AND X-RAY: There is no new radiographic study[place] [address], hemoglobin 11.6, and platelet count 581,000. Creatinine is 1.5. GFR is 46. There is no new x-ray for today but yesterday the chest x-ray showed that the lungs are well expanded. The heart is not enlarged and the vessels are less distended. There were no infiltrates. ASSESSMENT AND PLAN: The patient has gangrenous cellulitis of the right 3rd toe for which she is receiving Levaquin because Citrobacter grew out from the toe. COMORBIDITIES: The patient is elderly, he has peripheral vascular disease, diabetes mellitus, COPD, congestive heart failure, and urinary retention. cc: Piyush Rosales MD
[2018-10-13] MEDS: XOPENEX NEB INH SCH ×3 (07:43→15:24)
[2018-10-13] MEDS: PULMICORT INH SCH (07:44)
[2018-10-13] MEDS: ATROVENT NEB INH SCH ×3 (07:44→15:23)
--- NOTE | 2018-10-13 08:07 | EKG Report ---
Test Performed on : 10/12/2018 06:56:50 AM Test Reason : Rhythm change Blood Pressure : / mmHG Vent. Rate : 103 BPM Atrial Rate : 097 BPM P-R Int : 000 ms QRS Dur : 088 ms QT Int : 404 ms P-R-T Axes : 000 043 147 degrees QTc Int : 529 ms Atrial fibrillation. with rapid ventricular response. with premature ventricular or aberrantly conduc madi complexes. Possible Inferior infarct (cited on or before 01-APR-2018) ST & T wave abnormality, consider anterolateral ischemia Prolonged QT Abnormal ECG When compared with ECG of 11-OCT-2018 18:44, (Unconfirmed) Atrial fibrillation. has replaced Sinus rhythm. Confirmed by Hemal LI, Osmany ([id number]) on 10/13/2018 9:18:23 AM
--- NOTE | 2018-10-13 08:07 | EKG Report ---
Test Performed on : 10/11/2018 6:44:41 PM Test Reason : rhythm change Blood Pressure : / mmHG Vent. Rate : 088 BPM Atrial Rate : 088 BPM P-R Int : 212 ms QRS Dur : 086 ms QT Int : 406 ms P-R-T Axes : 046 048 142 degrees QTc Int : 491 ms Sinus rhythm. with 1st degree AV block. Cannot rule out Inferior infarct , age undetermined ST & T wave abnormality, consider anterolateral ischemia Abnormal ECG When compared with ECG of 10-OCT-2018 16:38, (Unconfirmed) Significant changes have occurred Confirmed by Hemal LI, Osmany ([id number]) on 10/13/2018 9:16:36 AM
--- NOTE | 2018-10-13 08:08 | EKG Report ---
Test Performed on : 10/10/2018 4:38:42 PM Test Reason : cp Blood Pressure : / mmHG Vent. Rate : 152 BPM Atrial Rate : 156 BPM P-R Int : 000 ms QRS Dur : 096 ms QT Int : 320 ms P-R-T Axes : 000 074 133 degrees QTc Int : 508 ms Supraventricular tachycardia. Septal infarct (cited on or before 01-APR-2018) Marked ST abnormality, possible lateral subendocardial injury Abnormal ECG When compared with ECG of 01-APR-2018 00:16, Vent. rate has increased BY 75 BPM Minimal criteria for Inferior infarct are no longer present Questionable change in initial forces of Anteroseptal leads T wave inversion no longer evident in Inferior leads Confirmed by Hemal LI, Osmany ([id number]) on 10/13/2018 9:12:47 AM
[2018-10-13] MEDS: MIRALAX PO SCH (08:34)
[2018-10-13] MEDS: LOPRESSOR PO SCH ×2 (08:34→20:02)
[2018-10-13] MEDS: PLETAL PO SCH ×2 (08:34→20:02)
[2018-10-13] MEDS: PERIDEX MT SCH ×2 (08:34→20:02)
[2018-10-13] MEDS: ASPIRIN EC PO SCH (08:35)
[2018-10-13] MEDS: LEVAQUIN PO SCH (08:35)
[2018-10-13] MEDS: HUMULIN N SUBQ SCH ×2 (08:35→20:04)
[2018-10-13] MEDS: CRESTOR PO SCH (08:35)
[2018-10-13] MEDS: GLUCOTROL XL PO SCH ×2 (08:35→20:02)
--- NOTE | 2018-10-13 12:04 | PROGRESS NOTE ---
DATE: 10/13/2018 The patient was taken to the operating room last for cystoscopy and bilateral retrograde pyelograms. Patient has been clinically doing well from a urologic standpoint. He is having good urinary output that is clear, yellow urine. However, patient developed some fluid overload and required diuresis due to shortness of breath and tachycardia over the weekend. His heart rate and blood pressure have improved. His heart rate this morning is 106, remains afebrile. His breathing has improved as well as shortness of breath. OBJECTIVE: Vital signs: Temperature 98.7 degrees, heart rate 106, blood pressure 146/59, oxygen saturation 97% on nasal cannula. General: No acute distress. Resting comfortably in bed. Alert orient x3. Respiratory: Good respiratory effort with nasal cannula in place. ABDOMEN: Soft, nontender, nondistended. No palpable masses. : No suprapubic tenderness. No CVA tenderness. Urethral catheter in place draining clear yellow urine. No evidence of clots. LABS: White blood cell count 14.7, hemoglobin 11.6, hematocrit 33.2, platelets [id number]. Sodium 139, potassium 3.5, chloride 99, bicarb 26, BUN 43, creatinine 1.3, glucose 194. ASSESSMENT AND PLAN: Mr. Hager is a 68-year-old with coronary artery disease, congestive heart failure, chronic obstructive pulmonary disease, type 2 diabetes, hypertension, peripheral arterial disease, who presents in consultation regarding hematuria. The patient was taken to the operating room on for cystoscopy, bilateral retrograde pyelograms, as well as bladder biopsies, evacuation of blood clots. The patient has not had any blood in his urine since then. However, patient was transferred to the CICU on Saturday night due to rapid heart rates that remain in the 140s. He has slowly improved. His infection counts were stable. He denies any abdominal pain, tachycardia, fevers or chills. The patient received diuresis and his urine today is clear yellow. No evidence of any clots within the catheter. We will leave it up to the primary team regarding removal of catheter. Patient seems to minimally ambulatory. He describes that he may be transferred to [facility] in the coming days. Recommended that if he becomes more ambulatory could consider removal of catheter at that time. Still awaiting results from biopsies. We will continue to follow up. Please call with questions or concerns. cc: Trevon No MD MTDD
--- NOTE | 2018-10-13 15:12 | Diag Imaging Result Doc PS360 ---
EXAM: LUNG SCAN / VQ 10/13/2018 HISTORY: hypoxia TECHNIQUE: Ventilation/perfusion lung scan, 38.9 mCi of technetium 99m DTPA aerosol and 5.6 mCi of technetium 99m MAA intravenously. COMMENT: There is no evidence of ventilation/perfusion mismatch. No perfusion defects are demonstrated. IMPRESSION: Normal study. Electronically signed by Luigi Bonilla 10/13/2018 3:10 PM
--- NOTE | 2018-10-13 15:30 | PROGRESS NOTE ---
DATE: 10/13/2018 SUBJECTIVE: He looks well today, much better oriented, not confused, not heavy work of breathing. He looks like baseline. OBJECTIVE: Blood pressure 109/51, heart rate of 80, respiratory rate 18, temperature 97.8 degrees, 97% on 4 L. Cardiovascular: Regular rate and rhythm. Pulmonary: Bilateral breath sounds clear to auscultation. GI: Soft, nontender, nondistended. Bowel sounds were positive. Laboratory Data: White count is 14, hemoglobin and hematocrit 11 and 33, platelets 581,000. Creatinine is down to 1.3. PROBLEM LIST: 1. Acute hypoxic respiratory failure due to pulmonary edema. Seems to be improved with diuretics so is otherwise stable. 2. Atrial fibrillation is also rate controlled and follow. Cardiology has followed but is stable on Cardizem and metoprolol. 3. Ischemic foot with gangrenous toe, cellulitis of the third toe on the right foot, positive for Citrobacter. I have discussed with [facility] and we are arranging transfer for evaluation because I do not think the patient is going to be stable enough to get this followed up as an outpatient. That was the plan initially and right now, he is weak. I do not think he is going to be able to go to rehab. 4. Gastrointestinal. He is having some nausea and vomiting. We will continue to follow. DISPOSITION: I think we will continue PT and follow. He has done pretty well. He may need rehab. We will evaluate accordingly. Discharge condition stable. I have discussed with [facility] and on-call physician for Dr. Tripathi, agreed that the patient needed to be transferred but no bed available. We will try later today versus tomorrow. cc: Kwadwo Bradley MD
[2018-10-13] MEDS ORDERED: SOLU-MEDROL IV SCH (17:00)
--- NOTE | 2018-10-13 18:01 | ECHO REPORT ---
ORDER DATE: 10/13/2018 INDICATION: Atrial fibrillation, COPD, CHF. M-MODE MEASUREMENTS: Left ventricle end diastole: 3.0. Left ventricle end systole: Not adequately measured. Posterior wall: 1.0. Interventricular septum: 1.1. SUMMARY OF 2-DIMENSIONAL IMAGIN. The aortic valve shows a mild degree of sclerosis of the cusps without stenosis. 2. The mitral valve appears to be slightly thickened. Color flow mapping unremarkable. 3. Pulsed wave Doppler of mitral inflow shows normal E/A ratio. 4. Tissue Doppler of septal and lateral mitral annulus averages 7 cm. 5. There are frequent PACs. 6. The tricuspid valve is normal. Color flow mapping is unremarkable. 7. The pulmonic valve is unremarkable. 8. Left ventricular systolic function shows an ejection fraction of 52% with hypokinesis of the mid to apical interventricular septum, suggesting either bundle branch block or coronary artery disease. SUMMARY: This study shows: 1. Technically difficult study. 2. Left ventricular systolic function appears to be mildly decreased. Ejection fraction measured by computer tracing at 52%, visually appears to be in the order of 45% to 50%, with hypokinesis of the distal interventricular septum and the apical anterior wall. That suggests coronary heart disease. 3. Optison was used to opacify the left ventricular chamber. The study in spite of that was difficult. 4. The valvular structures appear to be unremarkable. There is no evidence of any significant degree of stenosis. No regurgitation of the mitral or tricuspid valves. The aortic valve is unremarkable. Clinical correlation recommended. cc: MD Kwadwo Velazquez MD [facility]
[2018-10-13 19:19] VITALS: BP 140/67
[2018-10-13] MEDS: NEURONTIN PO SCH (20:03)
--- NOTE | 2018-10-19 21:50 | DISCHARGE SUMMARY ---
ADMISSION DATE: 10/06/2018 DISCHARGE DATE: 10/13/2018 DISCHARGE DIAGNOSES: 1. Acute hypoxic respiratory failure. 2. Pulmonary edema. 3. Atrial fibrillation. 4. 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 5. An intermittent encephalopathy. CONSULTATIONS: Dr. Martinez, general surgery. Dr. No, urology. Dr. Rosales, infectious diseases. Dr. Coello, cardiology. Dr. Jimenez, pulmonary. PROCEDURES: Cystoscopy, clot evacuation, bladder biopsy. IMAGING: He had a CT abdomen and pelvis that showed uncomplicated diverticulosis coli, cholelithiasis, otherwise negative. He had a retrograde pyelogram which was negative for obstruction. His head CT showed no acute process, some right maxillary disease. V/Q scan was negative. HOSPITAL COURSE: Briefly, patient was admitted on the per Dr. Doan with an ischemic toe, ulceration, and poor perfusion. He was seen by Dr. Tripathi, and he had a stent placed in June 2018. Dr. Martinez was contacted. He had been on Plavix for his severe PVD. Culture ended up growing out Citrobacter freundii. That was on the . It was sensitive to everything except cefazolin, and I think he had been on gram-negative coverage here. He was on Zyvox and cefepime, and Dr. Rosales was following. He had urinary retention, so I think Dr. Rosales ordered a Gregorio. Then he had gross hematuria, and Urology was consulted. His Plavix was stopped. Bladder was irrigated. CT was evaluated but did not show any significant bleeding. He was maintained. Chest x-ray did not show any major issues. He underwent cystoscopy and did not show any gross evidence of bleeding. Echocardiogram was obtained. I think there was concern over bloodstream infection, but EF was 55% to 60%. I was a little concerned also about other infection. Zyvox was discontinued. He was maintained on cefepime. There was concern over septic embolus, and echocardiogram was ordered because of that, although blood cultures were clear. I think it is fairly clear that ischemic toe is related to PVD. Initially, I think I had put him on vancomycin, but we stopped that when he had a bump in his creatinine. His peak creatinine increased to a level of 2.8, I think. When he developed 2.3, he developed some pretty significant agitation associated with that. was given IV fluids, and then he developed SVT. Cardiology was consulted. He was placed on Cardizem. Dr. Rosales switched him over to Levaquin. He had some significant agitation while he had SVT and had to be given Haldol. He did not know where he was, but that was before he had any changes in antibiotics or anything like that. He was placed in the [facility] for further monitoring. He did develop interstitial infiltrates and oxygen requirement. He became less agitated. Plan was to remove his catheter, but he was taken off the Cardizem drip and transitioned to oral low-dose beta fanta. Initially, he was on IV Cardizem at max dose, beta fanta, additional oral Cardizem, and he finally converted without difficulty. On the , he was mentating much better. He was requesting to be evaluated by Dr. Tripathi, which had been the plan. Initially, we were going to discharge him and have him follow up with Dr. Tripathi, but he developed all these numerous issues. I did not feel safe that he was going to be able to be discharged quickly in order for evaluation by Dr. Tripathi vascular surgeon. Additionally, he may end up needing rehab which would delay evaluation by vascular surgery. He did develop some wheezing for which he was placed on Xopenex. Encephalopathy, but head CT was negative. We did pursue a V/Q scan, because chest x-ray did not show any significant infiltrates to explain his degree of hypoxia which was likely due to COPD. Pulmonary was consulted. Although it is interesting, because he had 2 separate echoes. He had an echo on the and then he had another echo ordered on the if this is to be accurate. That one showed concern over CAD, which I think he had that was known. EF was about 45% to 50%. In any case, I discussed the case with hospitalist and vascular surgeon. I think Dr. Calderon had been covering, and hospitalist was covering. He was able to be transferred. Creatinine at time of discharge is 1.2. White count was around 12.5 and 9.5 the day before. The only positive culture was from the wound. Urine and blood were negative. Further care per [facility] as far as evaluation of his leg, and we will continue to follow. TIME SPENT: A 33-minute discharge for transfer requirements. cc: Kwadwo Bradley MD MTDD
== END 2018-10-13 23:11 | disposition short-term general hospital (02) | DRG 987 ==
LOC: ED 13:30 → SUATTDRO 18:21 → 4N 18:21 → 3S 10-10 22:01
PROVIDERS: ATTEND Internal Medicine
CPT/HCPCS: 70450; 71010; 71045; 74176; 74420; 78582; 80048; 80053; 81001; 82570; 82805; 82948; 83735; 83880; 84153; 84156; 84300; 84540; 85025; 85027; 85610; 85730; 86850; 86900; 86901; 87040; 87070; 87077; 87088; 87186; 88305; 88313; 93005; 93010; 93306; 94640; 94761; 94762; 94799; 96365; 96375; 97162; 97530; 99285; A9270; A9539; A9540; C8929; G0103; J0692; J1170; J1630; J1940; J2270; J2370; J2405; J2920; J2930; J3370; J7030; J7120; Q9957; Q9966; Q9967; S0073; XXXXX

== ENCOUNTER 2019-01-19 15:41 | Inpatient (IN) ==
[2019-01-19] MEDS ORDERED: NS 1,000 ML IV ONE ×2 (16:07→17:13)
--- NOTE | 2019-01-19 16:08 | EKG Report ---
Test Performed on : 01/19/2019 4:00:52 PM Test Reason : Low BP Blood Pressure : / mmHG Vent. Rate : 150 BPM Atrial Rate : 136 BPM P-R Int : 000 ms QRS Dur : 086 ms QT Int : 318 ms P-R-T Axes : 000 020 125 degrees QTc Int : 502 ms Supraventricular tachycardia. Possible Inferior infarct (cited on or before 01-APR-2018) ST & T wave abnormality, consider lateral ischemia Abnormal ECG When compared with ECG of 12-OCT-2018 06:56, Sinus rhythm. has replaced Atrial fibrillation. ST now depressed in Anterior leads T wave inversion less evident in Anterolateral leads Unconfirmed Result
--- NOTE | 2019-01-19 16:17 | PROVIDER DOCUMENTATION ---
This chart was entered by [place] Scribe, acting as scribe for Estelle Snowden MD. HPI-General Adult - General Chief Complaint: Weakness Stated Complaint: LOW BP Time Seen by Provider: 01/19/19 16:00 Source: patient, family Allergies/Adverse Reactions: Patient Allergies Allergy/AdvReac Type Severity Reaction Status Date / Time Penicillins Allergy Unknown Verified 11/17/18 12:31 Home Medications: Home Medication List Medication Instructions Recorded Confirmed Last Taken Type Glipizide [Glipizide ER] 10 mg PO BID 04/02/18 10/06/18 10/05/18 History Isosorbide Mononitrate [Isosorbide 60 mg PO DAILY 04/02/18 10/06/18 10/05/18 History Mononitrate ER] Lisinopril 40 mg PO DAILY 04/02/18 10/06/18 10/05/18 History Metformin [Glucophage] 1,000 mg PO BID 04/02/18 11/17/18 11/17/18 History Aspirin 2 tab PO DAILY 10/06/18 10/06/18 10/05/18 History Carvedilol [Coreg] 25 mg PO BID 10/06/18 11/17/18 11/17/18 History Chlorthalidone 12.5 mg PO DAILY 10/06/18 10/06/18 10/05/18 History Cilostazol 50 mg PO BID 10/06/18 10/06/18 10/05/18 History Clopidogrel [Plavix] 75 mg PO DAILY 10/06/18 11/17/18 11/17/18 History Diltiazem [Cardizem] 120 mg PO DAILY 10/06/18 10/06/18 10/05/18 History Gabapentin 300 mg PO QHS 10/06/18 11/17/18 11/16/18 History NPH, Human Insulin Isophane 20 unit SQ DAILY 10/06/18 10/06/18 10/05/18 History [Novolin N] Rosuvastatin Calcium [Crestor] 20 mg PO DAILY 10/06/18 10/06/18 10/05/18 History Acetaminophen 2 tab PO Q4H PRN 11/17/18 11/17/18 Unknown History Atorvastatin Calcium 1 tab PO QHS 11/17/18 11/17/18 11/16/18 History Cholecalciferol (Vit D3) [Vitamin 1 tab PO DAILY 11/17/18 11/17/18 11/17/18 History D3] Dextrose [Glucose Gel] 1 dose PO PRN PRN 11/17/18 11/17/18 Unknown History Furosemide 1 tab PO DAILY 11/17/18 11/17/18 11/17/18 History Glucagon,Human Recombinant 1 dose IM DIRECTED 11/17/18 11/17/18 Unknown History [Glucagon Emergency Kit] Hydrocodone/Acetaminophen 1 tab PO Q6H PRN 11/17/18 11/17/18 Unknown History [Hydrocodone-Acetamin 5-325 mg] Insulin Glargine [Basaglar] 18 unit SQ DAILY 11/17/18 11/17/18 Unknown History Insulin Lispro [Humalog Kwikpen] 6 unit SQ DIRECTED 11/17/18 11/17/18 Unknown History Ipratropium/Albuterol Sulfate 1 dose INH PRN PRN 11/17/18 11/17/18 Unknown History [Iprat-Albut 0.5-3(2.5) mg/3 ml] Levofloxacin 1 tab PO DAILY 11/17/18 11/17/18 11/17/18 History Loperamide HCl [Imodium A-D] 1 tab PO Q6H PRN 11/17/18 11/17/18 Unknown History Mirtazapine [Remeron] 0.5 tab PO DAILY 11/17/18 11/17/18 11/17/18 History Ondansetron [Zofran] 1 tab PO Q6H PRN 11/17/18 11/17/18 Unknown History Pantoprazole [Protonix] 1 tab PO BID 11/17/18 11/17/18 11/17/18 History Polyethylene Glycol 3350 [Miralax] 1 dose PO Q12H PRN PRN 11/17/18 11/17/18 Unknown History Potassium Chloride E.r. [Klor-Con] 1 tab PO DAILY 11/17/18 11/17/18 11/17/18 History Sennosides/Docusate Sodium 2 tab PO DAILY PRN 11/17/18 11/17/18 Unknown History [Senokot-S Tablet] Tamsulosin [Flomax] 1 tab PO DAILY 11/17/18 11/17/18 11/17/18 History - History of Present Illness -Gen Adult Nature of Presenting Problems: 68 y/o male presents to ED with N/V, loss of appetite, and weakness onset 2 days ago. Pt reports his home health nurse told him to come to ED for hypotension and tachycardia. Pt is alert and oriented. Location of Pain/Injury: reports: none Pain Radiation: reports: no radiation Quality of Pain: reports: none Severity: reports: mild Onset/Duration: reports: 2 days ago Timing: reports: still present Context/Activities at Onset: reports: none Modifying Factors: improves with: nothing Associated Symptoms: reports: loss of appetite, nausea, vomiting, weakness, other (tachycardia; hypotension) Similar Symptoms Previously?: No Recently seen or treated by another doctor?: No Review of Systems - Adult - REVIEW OF SYSTEMS - ADULT Constitutional: reports: other (hypotension). denies: chills, fever Eyes: reports: no symptoms reported Ears, Nose, Mouth & Throat: reports: no symptoms reported Cardiovascular: reports: palpitations (tachycardia), other (hypotension). denies: chest pain Respiratory: denies: cough, shortness of breath Gastrointestinal: reports: nausea, poor appetite, vomiting. denies: abdominal pain, diarrhea Genitourinary: reports: no symptoms reported Musculoskeletal: denies: back pain, joint pain Integumentary: reports: no symptoms reported Neurological: reports: other (weakness). denies: dizziness/vertigo, seizure Psychiatric: reports: no symptoms reported Endocrine: reports: no symptoms reported Hematologic/Lymphatic: reports: no symptoms reported Allergic/Immunologic: reports: no symptoms reported All Other Systems: Reviewed and Negative Past History - Adult - PAST MEDICAL HISTORY-ADULT Review of Records: reports: Old Records Reviewed, Nursing Assessment Review, Medications Reviewed Major Childhood Illnesses: reports: denies history Cardiovascular: reports: CAD, HTN, hyperlipidemia Respiratory: reports: COPD Gastrointestinal: reports: denies history Obstetrical/Gynecological: reports: denies history Genitourinary: reports: denies history Musculoskeletal: reports: denies history Neurological: reports: denies history Psychiatric: reports: denies history Endocrine/Immune: reports: Diabetes Other Conditions: reports: denies history - PRIOR SURGERIES/PROCEDURES Surgical/Procedure History: reports: recent surgery, reviewed, not pertinent, orthopedic (extremity) (R 3rd toe amputation), other (fempop bypass; stent) - IMMUNIZATION STATUS Childhood Immunizations: See Nurse Assessment Flu Vaccine: See Nurse Assessment - FAMILY HISTORY Family History: reviewed, not pertinent - SOCIAL HISTORY Smoking: quit less than 1 year Substance Use: none/never Alcohol Use Frequency: rarely Living Situation: family Physical Exam-General - PHYSICAL EXAM-ADULT Initial Vital Signs Reviewed: Yes (HR 147; blood pressure 96/68) - CONSTITUTIONAL General Appearance: appears well, alert, no apparent distress - EYES Eyes: PERRL/EOMI, pink conjunctivae - HEAD, EARS, NOSE, MOUTH & THROAT HENMT: normocephalic/atraumatic, moist mucous membranes, normal ENT inspection - NECK Neck: non-tender, full range of motion - RESPIRATORY Respiratory: chest non-tender, lungs clear, normal breath sounds - CARDIOVASCULAR Cardiovascular: tachycardia - GASTROINTESTINAL (ABDOMEN) Abdominal Exam: normal bowel sounds, non tender, soft - MUSCULOSKELETAL Back Exam: normal inspection, no CVA tenderness, no vertebral tenderness Extremity: normal range of motion, non-tender - SKIN Integumentary: normal color, warm/dry - NEUROLOGIC Neurologic: grossly normal - PSYCHIATRIC Psych/Mental Status: normal mood/affect, normal thought content, normal thought process, oriented x 3 Progress - PLAN OF CARE/RESULTS Progress/Plan/Lab Results: Vital Signs - 8 hr 01/19/19 15:44 Temperature 97.4 F L Respiratory Rate 16 Orders Category Date Time Status 0.9% Sodium Chloride Inj [Ns] 1,000 ml Med 01/19/19 16:07 Active IV 999 mls/hr EKG [EKG] Stat Ther 01/19/19 16:06 Ordered Laboratory Tests 01/19/19 01/19/19 01/19/19 16:07 16:12 16:12 WBC 13.34 H RBC 4.64 L Hgb 13.4 L Hct 40.4 L MCV 87.1 MCH 28.9 MCHC 33.2 RDW Std Deviation 15.2 H Plt Count 361 MPV 10.4 Immature Gran % (Auto) 0.1 Neut % (Auto) 70.1 Lymph % (Auto) 18.4 L Bracken % (Auto) 8.8 Eos % (Auto) 2.2 Baso % (Auto) 0.4 Immature Gran # (Auto) 0.02 Neut # (Auto) 9.32 H Lymph # (Auto) 2.46 Bracken # (Auto) 1.18 H Eos # (Auto) 0.30 Baso # (Auto) 0.06 Sodium 138 Potassium 4.7 Chloride 91 L Carbon Dioxide 27 Anion Gap 20 BUN 78 H Creatinine 2.4 H Estimated GFR/1.73 m2 27 BUN/Creatinine Ratio 33 Glucose 183 H POC Glucose 180 H Calculated Osmolality 304 Calcium 9.3 Total Bilirubin 0.40 AST 33 ALT 21 Alkaline Phosphatase 91 Total Protein 7.3 Albumin 4.3 Globulin 3.0 Albumin/Globulin Ratio 1.0 Result Diagrams: 01/19/19 16:12 01/19/19 16:12 - EKG 1 Time of EKG reading by physician:: 16:00 EKG Read and Signed by:: Estelle Snowden EKG Interpretation (*Must complete 3 of following elements*): Abnormal Rate: 150 Rhythm: SVT [place]: normal QRS: other (possible inferior infarct) CT Interval: normal ST Wave: non-specific ST changes (consider lateral ischemia) - XRAY 1 XRAY Study: Chest Impression: See EMR Report - CONSULTS/PCP/HOSPITALIST Notification #1 *Consult/PCP/Hospitalist*: Dr. Romero Time Discussed: 17:31 Reason/Comments: Acute renal failure, dehydration, tachycardia Consult Disposition: Admit Departure - Departure Date of Disposition Decision: 01/19/19 Time of Disposition Decision: 17:35 DIAGNOSIS: Dehydration, Tachycardia Acute renal failure Qualifiers: Acute renal failure type: unspecified Qualified Code(s): N17.9 - Acute kidney failure, unspecified Disposition: ADMITTED INPATIENT 09 Certified Medical Emergency: Emergent Condition: Stable Referrals and Follow-Ups: None,PCP [Primary Care Provider] - - Critical Care Note This patient required my direct & personal management of CC.: No Attestation - Physician/ GARRY Attestation Patient care was provided by Advanced Practice Provider:: No The physician spent face to face time with patient:: Yes Advanced Practice Provider documentation review:: Supervising physician onsite and consulted in the evaluation and care of this patient. The physician did have a face to face encounter with the patient. This chart was documented by the indicated scribe, ([place] Scribe) and accurately reflects the services I performed and decisions made by me, Estelle Snowden MD, as attested by the provider's signature.
[2019-01-19 16:22] LABS: BASO# 0.06 X1000 (0.0-0.2); BASO% 0.4 % (0.0-0.8); EOS% 2.2 % (0.0-10.0); HEMATOCRIT 40.4 % (42.0-52.0); HEMOGLOBIN 13.4 g/dL (14.0-18.0); IMM GRAN# 0.02 X1000 (0.0-0.04); IMM GRAN% 0.1 % (0.0-0.5); LYMPH# 2.46 X1000 (1.2-3.4); LYMPH% 18.4 % (20.5-51.1); MCH 28.9 PG (27-31); MCHC 33.2 g/dL (33-37); MCV 87.1 FL (81-99); MONO# 1.18 X1000 (0.11-0.59); MONO% 8.8 % (1.7-9.3); MPV 10.4 FL (7.4-10.4); NEUT# 9.32 X1000 (1.4-6.5); NEUT% 70.1 % (42.2-75.2); PLT 361 X1000 (130-400); RBC 4.64 XMIL (4.7-6.1); RDW 15.2 % (11.5-14.5); WBC 13.34 X1000 (4.8-10.8)
[2019-01-19 17:05] LABS: ALBUMIN 4.3 g/dL (3.5-5.0); CALCIUM 9.3 mg/dL (8.8-10.2); CREATININE 2.4 mg/dL (0.7-1.2); POTASSIUM 4.7 mmol/L (3.5-5.1); TOTAL BILIRUBIN 0.4 mg/dL (0.20-1.00); TOTAL PROTEIN 7.3 g/dL (6.3-8.3)
[2019-01-19] MEDS ORDERED: ROCEPHIN IV ONE (17:13)
[2019-01-19] MEDS ORDERED: MAXIPIME 1 GM in NS 50 ML IV ONE (17:49)
[2019-01-19] MEDS ORDERED: VANCOMYCIN IV PER PHARMACY MISC SCH (18:00)
[2019-01-19 18:05] LABS: BILIRUBIN URINE NEGATIVE (NEGATIVE); BLOOD URINE TRACE (NEGATIVE); CLARITY CLEAR (CLEAR); COLOR YELLOW; GLUCOSE URINE NEGATIVE (NEGATIVE); KETONE URINE NEGATIVE (NEGATIVE); LEUKOCYTES URINE TRACE (NEGATIVE); NITRITE URINE NEGATIVE (NEGATIVE); PROTEIN URINE 1+(30 mg/dL) mg/dL (NEGATIVE); UROBILINOGEN URINE NORMAL
[2019-01-19 18:06] LABS: URINE BACTERIA 1+ /HFP; URINE EPITHELIAL CELLS <10 /HPF (<10); URINE RBC <10 /HPF (<10); URINE WBC <10 /HPF (<10)
[2019-01-19 18:07] LABS: URINE CAST NONE SEEN /LPF; URINE CRYSTAL NONE SEEN /HPF; URINE SOURCE CLEAN CATCH; URINE YEAST NONE SEEN /HPF
[2019-01-19 18:23] LABS: BASO# 0.06 X1000 (0.0-0.2); BASO% 0.5 % (0.0-0.8); EOS# 0.24 X1000 (0.0-0.7); EOS% 1.9 % (0.0-10.0); HEMATOCRIT 37.9 % (42.0-52.0); HEMOGLOBIN 12.6 g/dL (14.0-18.0); IMM GRAN# 0.02 X1000 (0.0-0.04); IMM GRAN% 0.2 % (0.0-0.5); LYMPH# 2.54 X1000 (1.2-3.4); LYMPH% 19.6 % (20.5-51.1); MCH 29.1 PG (27-31); MCHC 33.2 g/dL (33-37); MCV 87.5 FL (81-99); MONO# 1.24 X1000 (0.11-0.59); MONO% 9.6 % (1.7-9.3); NEUT# 8.86 X1000 (1.4-6.5); NEUT% 68.2 % (42.2-75.2); PLT 297 X1000 (130-400); RBC 4.33 XMIL (4.7-6.1); RDW 14.9 % (11.5-14.5); WBC 12.96 X1000 (4.8-10.8)
--- NOTE | 2019-01-19 18:46 | Diag Imaging Result Doc PS360 ---
EXAM: CHEST-1 VIEW 01/19/2019 HISTORY: sepsis protocol TECHNIQUE: AP portable upright at 1837 COMMENT: There is a calcified granuloma present in the lower mid left lung. There is no evidence of acute cardiac or pulmonary disease and compared to 11/17/2018 there has been no significant change. IMPRESSION: No evidence of acute disease. Electronically signed by Luigi Bonilla 01/19/2019 6:44 PM
[2019-01-19] MEDS ORDERED: LOVENOX 1 MG/KG SUBQ ONE (18:51)
[2019-01-19] MEDS ORDERED: ASPIRIN PO ONE ×2 (18:52→18:57)
[2019-01-19] MEDS ORDERED: VANCOMYCIN 1 GM/NS 1 GM/250 ML IVPB IV ONE (19:00)
--- NOTE | 2019-01-19 19:06 | ED EKG INTERP ---
This chart was entered by Ashly Reagan Scribe, acting as scribe for Estelle Snowden MD. EKG Interpretation - EKG Time of EKG reading by physician:: 19:01 EKG Read and Signed by:: Estelle Snowden EKG Interpretation (*Must complete 3 of following elements*): Abnormal (inferior infarct age undetermined ST & T wave abnormality consider lateral ischemia) Rate: 95 Rhythm: normal sinus QRS: normal [place] Interval: normal Attestation - Physician/ GARRY Attestation Patient care was provided by Advanced Practice Provider:: No The physician spent face to face time with patient:: Yes Advanced Practice Provider documentation review:: Supervising physician onsite and consulted in the evaluation and care of this patient. The physician did have a face to face encounter with the patient. This chart was documented by the indicated scribe, (Ashly Reagan Scribe) and accurately reflects the services I performed and decisions made by me, Estelle Snowden MD, as attested by the provider's signature.
[2019-01-19 19:23] LABS: ALBUMIN 3.7 g/dL (3.5-5.0); CALCIUM 8.6 mg/dL (8.8-10.2); CREATININE 2.2 mg/dL (0.7-1.2); TOTAL BILIRUBIN 0.2 mg/dL (0.20-1.00); TOTAL PROTEIN 6.9 g/dL (6.3-8.3)
[2019-01-19] MEDS ORDERED: LOVENOX SUBQ ONE (19:30)
--- NOTE | 2019-01-19 19:50 | HISTORY AND PHYSICAL ---
PRIMARY CARE PROVIDER: A doctor with the NH, Dr. Hinson, in [place]. VASCULAR SURGEON: Dr. Tripathi. CHIEF COMPLAINT: Does not feel well. HISTORY OF PRESENT ILLNESS: Mr. Hager is an ill-appearing 68-year-old male who presented to the ED with complaints of nausea, vomiting, loss of appetite and weakness that has been ongoing for some time but increased over the last 2 days. The patient had a home health nurse come and assess him today. She stated he was hypotensive and tachycardic. In the ED, he was found to be in SVT, 140s to 150s, I believe he was given a dose of adenosine and then finally initiated on IV fluids. His heart rate has come down to the low 100's. We will need to recheck an ABG. He did have a slightly elevated white count. We are currently pending ABG, some more laboratory data, as well as initiation of broad-spectrum antibiotics. He has had a right 3rd toe infection and has undergone a right medial thigh arterial bypass with Dr. Tripathi as well as an amputation of that toe in October. He did require some home health after that. Per the nephew, he has been to [facility] for a stent in the hospital, [facility], back to rehab and he has been home for a couple weeks now with home health and wound care. He is off all antibiotics. I did not appreciate any infection to his amputation or his arterial bypass sites. However, we will get wound Care on board and transfer him to [facility] secondary to no ICU beds at [place] for SVT and probable sepsis. I do not have a clear source of infection yet. He has responded to IV fluids and does have a positive lactate. PAST MEDICAL HISTORY: 1. SVT. 2. Atrial fibrillation. 3. 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 Tripathi in October 2018. 4. Previous sepsis on 11/17/2018 where the patient requested to be transferred to [facility] to be under the care of Dr. Tripathi. 5. Coronary artery disease. 6. Chronic congestive systolic heart failure. 7. COPD. 8. Type 2 diabetes. 9. Hypertension. 10. Right femoral arterial disease. PAST SURGICAL HISTORY: 1. Right femoral artery stent. 2. Recent right medial thigh arterial bypass with Dr. Tripathi with amputation of his 3rd right toe. 3. Cystoscopy with clot evacuation and bladder biopsy back in September of 2018. SOCIAL HISTORY: Was a 1 pack per day smoker since his teens. Alcohol about once a year. No illicit drug use. He lives at home. He has a supportive nephew at the bedside. He has home health with wound care. 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 FAMILY HISTORY: A sister with diabetes type 2 and thyroid disease. ALLERGIES: Penicillin. HOME MEDICATIONS: Have not been verified, currently being compiled. We will start when appropriate. REVIEW OF SYSTEMS: Twelve-point review of systems completely negative except for those mentioned in HPI. PHYSICAL EXAMINATION: VITAL SIGNS: Initial temperature was 97.4 degrees, heart rate in the 140s to 150s. He is now 107, respiration 19, blood pressure 146/86. At point, he was 80s over 50s. However, we do not have his documented in the computer. GENERAL: Mr. Hager is an ill-appearing 68-year-old male who is lying on the stretcher on his right side, currently trying to obtain ABG and more laboratory data. HEENT: Atraumatic, normocephalic. PERRL. NECK: Supple trachea midline. CV: S1, S2 appreciated. No murmurs, gallops, or rubs. No JVD was appreciated. No lower extremity edema. PULMONARY: Clear to auscultation bilaterally. Bilaterally decreased in the bases. No work of breathing noted. GI: Flat, soft, nontender, nondistended. Positive bowel sounds in 4 quadrants. EXTREMITIES: The patient was moving all extremities. NEUROLOGIC: Alert and oriented. Follow commands, answers all questions. SKIN: He does have a amputation of a right 3rd toe that is currently wrapped. I did peel back the dressing. I did not appreciate any foul smells or any oozing from the incision that I could see on his right leg. It appears to be healing. He did state one area up on his thigh still has a dressing on it. I was not able to assess that at that time. We will get wound care on board. DIAGNOSTIC DATA: EKG: SVT at a rate of 150. Chest x-ray is currently pending. Urinalysis: 1+ protein, 1+ bacteria, negative for nitrites. CBC: White count 13, hemoglobin and hematocrit 13 and 40, platelet count is 361,000. Chemistry: Sodium 138, potassium 4.7, BUN 78, creatinine 2.4, blood glucose is 183. Plasma lactate is 3. ABG: They were unable to obtain. We will cancel that order. We will also obtain routine cultures of the amputation site as well as the medial thigh, as well as blood cultures have been obtained. ASSESSMENT AND PLAN: 1. Supraventricular tachycardia. The patient really did not respond to adenosine. He did respond with IV fluid boluses. We will continue with IV fluids. Consult Cardiology. His heart rate is now in the low 100s. We will recheck an EKG. He was somewhat hypotensive earlier. We will hold off on initiating a drip at this time. We will need to restart his home medication when verified. 2. Probable sepsis. He does have a positive lactate. He was tachycardic. We are currently pending chest x-ray. He has been in and out of the hospital over the last several months. We will cover him with vancomycin and cefepime for now. Continue with IV fluids. Continue to trend his lactate. Obtained wound cultures, as well as blood cultures. Will consult wound care. 3. GIANCARLO on CKD with dehydration continue IVF for now patient does have history of CHF. 4. Recent right medial thigh arterial bypass with Dr. Tripathi as well as amputation of the 3rd right toe. 5. Nausea, vomiting. We will continue with antiemetics. Place him on clear liquids, NPO after midnight. 6. Type 2 diabetes. We will continue with pattern blood sugars and sliding scale insulin. 7. Hypertension. 8. Chronic obstructive pulmonary disease. 9. Chronic systolic congestive heart failure. 10. Coronary artery disease. The patient denies any chest pain. 11. Peripheral artery disease. Aware. 12. Further recommendation to follow physician evaluation, laboratory and diagnostic data. The patient is currently being transferred to [facility] to be admitted to the ICU. Dictated by ALEX Khan for Yazan Romero MD cc: Yazan Romero MD [facility]
--- NOTE | 2019-01-19 19:59 | HISTORY AND PHYSICAL ---
ADDENDUM: Patient seen and examined by myself. Full note dictated and discussed with nurse practitioner. Patient presented to the hospital after his home health nurse came and checked on him and felt as though he was volume depleted. His blood pressures were low in the 60s to 70s systolic range. His heart rates were 140s. In the ER currently after IV fluid boluses, his heart rates are still in the 130s to 140s. His creatinine is elevated at 2.4, which is above his baseline of 1.4. BUN is elevated. Blood pressures are actually improved. We will admit him to the hospital to control his heart rate. Further orders as needed. cc: Yazan Romero MD
[2019-01-19] MEDS ORDERED: ZOFRAN IV PRN (20:41)
[2019-01-19] MEDS: NS 1,000 ML IV SCH (22:21)
[2019-01-19] MEDS: HUMALOG SUBQ SCH (22:48)
--- NOTE | 2019-01-19 23:40 | EKG Report ---
Test Performed on : 01/19/2019 6:59:55 PM Test Reason : repeat Blood Pressure : / mmHG Vent. Rate : 096 BPM Atrial Rate : 096 BPM P-R Int : 212 ms QRS Dur : 090 ms QT Int : 358 ms P-R-T Axes : 102 032 102 degrees QTc Int : 452 ms Undetermined rhythm Possible Inferior infarct (cited on or before 01-APR-2018) ST & T wave abnormality, consider lateral ischemia Abnormal ECG When compared with ECG of 19-JAN-2019 16:00, (Unconfirmed) Current undetermined rhythm precludes rhythm comparison, needs review Unconfirmed Result
[2019-01-20] MEDS: TYLENOL PO PRN ×2 (00:19→22:48)
--- NOTE | 2019-01-20 00:27 | EKG Report ---
Test Performed on : 01/19/2019 10:07:59 PM Test Reason : EVAL Blood Pressure : / mmHG Vent. Rate : 085 BPM Atrial Rate : 085 BPM P-R Int : 218 ms QRS Dur : 102 ms QT Int : 376 ms P-R-T Axes : 097 049 161 degrees QTc Int : 447 ms Sinus rhythm. with 1st degree AV block. with premature atrial complexes. Cannot rule out Inferior infarct (cited on or before 01-APR-2018) ST & T wave abnormality, consider lateral ischemia Abnormal ECG When compared with ECG of 19-JAN-2019 19:00, (Unconfirmed) premature atrial complexes. are now present Inverted T waves have replaced nonspecific T wave abnormality in Inferior leads Confirmed by Rivera Aparicio MD ([id number]) on 01/25/2019 9:27:05 PM
--- NOTE | 2019-01-20 00:30 | EKG Report ---
Test Performed on : 01/19/2019 7:00:23 PM Test Reason : repeat Blood Pressure : / mmHG Vent. Rate : 095 BPM Atrial Rate : 095 BPM P-R Int : 194 ms QRS Dur : 096 ms QT Int : 378 ms P-R-T Axes : 092 030 118 degrees QTc Int : 475 ms Normal sinus rhythm. Inferior infarct (cited on or before 01-APR-2018) ST & T wave abnormality, consider lateral ischemia Abnormal ECG When compared with ECG of 19-JAN-2019 18:59, (Unconfirmed) Previous ECG has undetermined rhythm, needs review ST no longer elevated in Inferior leads Unconfirmed Result
[2019-01-20] MEDS: NS 1,000 ML IV SCH ×3 (03:58→23:14)
[2019-01-20 05:52] LABS: BASO# 0.05 X1000 (0.0-0.2); BASO% 0.8 % (0.0-0.8); EOS% 4.6 % (0.0-10.0); HEMATOCRIT 34.4 % (42.0-52.0); HEMOGLOBIN 11.2 g/dL (14.0-18.0); LYMPH# 1.62 X1000 (1.2-3.4); LYMPH% 24.7 % (20.5-51.1); MCH 28.4 PG (27-31); MCHC 32.6 g/dL (33-37); MCV 87.1 FL (81-99); MONO# 0.57 X1000 (0.11-0.59); MONO% 8.7 % (1.7-9.3); MPV 10.6 FL (7.4-10.4); NEUT# 4.02 X1000 (1.4-6.5); NEUT% 61.2 % (42.2-75.2); PLT 280 X1000 (130-400); RBC 3.95 XMIL (4.7-6.1); RDW 14.9 % (11.5-14.5); WBC 6.56 X1000 (4.8-10.8)
[2019-01-20] MEDS: HUMALOG SUBQ SCH ×4 (06:13→22:33)
[2019-01-20 06:43] LABS: ALB/GLOB RATIO 1.6; ALBUMIN 3.8 g/dL (3.5-5.0); CALCIUM 9.1 mg/dL (8.8-10.2); CREATININE 1.4 mg/dL (0.7-1.2); MAGNESIUM 1.9 mg/dL (1.5-2.7); POTASSIUM 3.7 mmol/L (3.5-5.1); TOTAL BILIRUBIN 0.27 mg/dL (0.20-1.00); TOTAL PROTEIN 6.2 g/dL (6.3-8.3)
--- NOTE | 2019-01-20 07:16 | Diag Imaging Result Doc PS360 ---
EXAM: CHEST-PORTABLE 01/20/2019 HISTORY: SVT TECHNIQUE: AP portable at 0521 COMMENT: There is a calcified granuloma in the left lower lobe. The heart size and pulmonary vascularity are within normal limits. The lungs appear to be clear and unchanged since 01/19/2019. IMPRESSION: Stable chest. Electronically signed by Luigi Bonilla 01/20/2019 7:14 AM
--- NOTE | 2019-01-20 07:45 | EKG Report ---
Test Performed on : 01/20/2019 06:52:48 AM Test Reason : chest pain Blood Pressure : / mmHG Vent. Rate : 073 BPM Atrial Rate : 073 BPM P-R Int : 212 ms QRS Dur : 096 ms QT Int : 392 ms P-R-T Axes : 083 044 128 degrees QTc Int : 431 ms Sinus rhythm. with 1st degree AV block. Cannot rule out Inferior infarct (cited on or before 01-APR-2018) ST & T wave abnormality, consider lateral ischemia Abnormal ECG When compared with ECG of 19-JAN-2019 22:07, (Unconfirmed) premature atrial complexes. are no longer present Nonspecific T wave abnormality has replaced inverted T waves in Inferior leads Confirmed by Rivera Aparicio MD ([id number]) on 01/25/2019 9:27:22 PM
[2019-01-20] MEDS ORDERED: ASPIRIN PO SCH (12:15)
--- NOTE | 2019-01-20 12:37 | PROGRESS NOTE ---
DATE: 01/20/2019 INTERVAL HISTORY: Mr. Hager was transferred to [facility] ICU from [place] for suspected supraventricular tachycardia, elevated troponins. He did not have any other acute overnight events. In the morning time, EKG was suggestive of, in fact, normal sinus rhythm. SUBJECTIVE: He is hungry. He wants to eat. He states that his nausea and vomiting started about 7 days ago and was intractable for 48 hours. After that, he was feeling better but he was not able to take by mouth. The home care nurse had evaluated him. He was found to have tachycardia and hypotension, and so was transferred to [facility]. Currently, he is denying any chest pain, shortness of breath. The patient also denies nausea, vomiting, abdominal cramps. VITAL SIGNS: Temperature 98.6 degrees, pulse of 75, respiratory rate 23, blood pressure 170/67, saturating 100% on 2 L nasal cannula. PHYSICAL EXAMINATION: Not in any acute distress. Oral cavity is dry. Air entry bilaterally equal. No wheeze or crackles. S1 and S2 are normal. No murmur, rub, or gallop. Abdomen: Soft, nontender. Active bowel sounds. No lower extremity edema. He had a right groin vascular surgery wound, about 5 cm, which is healing well without any oozing, bleeding, or pus. He also has a right second toe amputation which is healing well without any drainage. Input and output suggest positive 200 mL. LABS: Suggestive of improved leukocytosis, normocytic anemia, normal platelet count, normal electrolytes, improving acute kidney injury, normal glucose. Troponins were elevated at 0.35 to 0.45. They have not started downtrending and I will repeat another troponin now. Blood cultures have not shown any growth. Urine culture, no growth to date. ASSESSMENT AND PLAN: 1. Tachycardia and hypotension on presentation with suspicion of shock. This looks hypovolemic shock to me. I do not have any identifiable source of infection. I will continue intravenous fluids. I will stop intravenous antibiotics. Culture data so far negative. 2. Supraventricular tachycardia on presentation with elevated troponins. His electrocardiogram had old Q-waves in inferior leads and old T-wave inversions in the lateral leads. He denies any chest pain. His echocardiogram in 2019 was unremarkable. I will start him on his aspirin, Plavix, carvedilol, and diltiazem. Further medication reconciliation is pending. This is likely type 2 RI. Cardiology has been consulted. 3. Acute kidney injury, likely due to profound volume depletion. Continue intravenous fluids. Follow up serial BMP. 4. History of insulin-dependent diabetes mellitus. Start patient on sliding scale insulin and gastrointestinal soft diet. 5. Supraventricular tachycardia on presentation. I will start him on carvedilol and diltiazem until further medication reconciliation is pending. 6. Disposition. The patient appears to be hemodynamically stable. My plan is to transfer him to routine medical floor if he is tolerating diet well. Plan of care discussed with him. I also discussed with the nursing team about getting medication reconciliation as soon as possible. All of their questions have been answered. cc: James Collazo MD MTDD
[2019-01-20] MEDS: PLAVIX PO SCH (13:26)
[2019-01-20] MEDS: COREG PO SCH ×2 (13:26→21:06)
[2019-01-20] MEDS: CARDIZEM PO SCH ×3 (13:26→21:05)
[2019-01-20] MEDS: IMDUR PO SCH (18:27)
[2019-01-20] MEDS ORDERED: MAXIPIME 1 GM in NS 50 ML IV ONE (21:00)
[2019-01-20] MEDS: NEURONTIN PO SCH (21:05)
[2019-01-20] MEDS: LIPITOR PO SCH (21:05)
[2019-01-20] MEDS: PLETAL PO SCH (21:05)
[2019-01-20 21:20] LABS: URINE SOURCE CLEAN CATCH
[2019-01-20 21:29] LABS: BILIRUBIN URINE NEGATIVE (NEGATIVE); BLOOD URINE NEGATIVE (NEGATIVE); COLOR YELLOW; GLUCOSE URINE 300 mg/dL (NEGATIVE); KETONE URINE NEGATIVE (NEGATIVE); LEUKOCYTES URINE NEGATIVE (NEGATIVE); NITRITE URINE NEGATIVE (NEGATIVE); PH URINE 7.5; PROTEIN URINE 30 mg/dL (NEGATIVE); SP GRAVITY URINE 1.015; TURBIDITY URINE CLEAR (CLEAR); UROBILINOGEN URINE NORMAL (NORMAL)
[2019-01-20 21:31] LABS: UR EPITHELIAL CELLS <10 /HPF (<10); URINE BACTERIA NEGATIVE /HPF; URINE RBC <10 /HPF (<10); URINE WBC <10 /HPF (<10)
[2019-01-20] MEDS: ATROVENT HFA INH SCH (21:50)
[2019-01-21] MEDS: CARDIZEM PO SCH ×4 (02:41→21:03)
[2019-01-21] MEDS: ATROVENT HFA INH SCH ×4 (03:44→19:59)
[2019-01-21 07:21] LABS: BASO# 0.04 X1000 (0.0-0.2); BASO% 0.6 % (0.0-0.8); EOS# 0.29 X1000 (0.0-0.7); EOS% 4.7 % (0.0-10.0); HEMATOCRIT 30.3 % (42.0-52.0); HEMOGLOBIN 9.9 g/dL (14.0-18.0); LYMPH% 20.9 % (20.5-51.1); MCH 28.9 PG (27-31); MCHC 32.7 g/dL (33-37); MCV 88.3 FL (81-99); MONO# 0.41 X1000 (0.11-0.59); MONO% 6.6 % (1.7-9.3); MPV 9.9 FL (7.4-10.4); NEUT# 4.17 X1000 (1.4-6.5); NEUT% 67.2 % (42.2-75.2); PLT 252 X1000 (130-400); RBC 3.43 XMIL (4.7-6.1); RDW 14.6 % (11.5-14.5); WBC 6.21 X1000 (4.8-10.8)
[2019-01-21 07:39] LABS: CALCIUM 8.5 mg/dL (8.8-10.2); CREATININE 1.3 mg/dL (0.7-1.2); MAGNESIUM 1.6 mg/dL (1.5-2.7); POTASSIUM 3.7 mmol/L (3.5-5.1)
[2019-01-21] MEDS: HUMALOG SUBQ SCH ×4 (07:47→21:43)
[2019-01-21] MEDS: NS 1,000 ML IV SCH (07:50)
[2019-01-21] MEDS: ASPIRIN PO SCH (08:43)
[2019-01-21] MEDS: PLETAL PO SCH ×2 (08:43→21:03)
[2019-01-21] MEDS: IMDUR PO SCH (08:43)
[2019-01-21] MEDS: COREG PO SCH ×2 (08:43→21:03)
[2019-01-21] MEDS: PLAVIX PO SCH (08:43)
--- NOTE | 2019-01-21 09:18 | CONSULTATION ---
DATE OF CONSULTATION: 01/20/2019 IMPRESSION: 1. Narrow complex tachycardia on presentation, possibly atypical atrial flutter with rapid ventricular rate. 2. Nonspecific elevation in troponin in the setting of acute renal dysfunction and intravascular volume depletion as well as tachycardia, with no chest discomfort. Suspect nonspecific elevation in troponin is a secondary phenomenon to volume depletion and acute renal dysfunction, coupled with supraventricular tachycardia. 3. Atherosclerotic coronary disease. 4. Extensive peripheral vascular disease. 5. Chronic obstructive pulmonary disease. 6. Type 2 diabetes mellitus. 7. Hypertension. 8. Chronic cigarette use, only recently discontinued about a month ago. RECOMMENDATIONS: 1. Continue Cardizem and carvedilol. 2. Continue dual anti-platelet therapy. 3. Conservative cardiovascular management overall. HISTORY: This 68-year-old white male, with extensive past history of peripheral vascular disease, atherosclerotic coronary disease, type 2 diabetes mellitus, hypertension, hyperlipidemia, and previous atrial fibrillation, was admitted to the [facility] Unit after he presented to [place] room. He had been visited by home health nurse who found him to be hypotensive, with systolic blood pressure in the 60s and with tachycardia. Patient relates that he felt some fatigue and some exertional shortness of breath, but denies any chest pain or orthopnea. He was taken to the emergency room at [facility] where ECG suggested supraventricular tachycardia. He was given some intravenous adenosine with some reported slowing of his heart rate. ECG tracings are not available for review. 12-lead EKG did resemble narrow complex tachycardia at 150 beats per minute which was quite regular and possibly atypical atrial flutter. Patient reverted back to normal sinus rhythm. He has been found to have evidence of acute renal dysfunction, probably due to intravascular volume depletion. For the last week, he has had nausea and vomiting and poor oral intake. He has had no recent chest pain. He reports that he quit smoking about a month ago. PAST MEDICAL HISTORY: 1. Atherosclerotic coronary disease. 2. Extensive history of peripheral vascular disease. 3. Chronic obstructive pulmonary disease. 4. Chronic systolic heart failure. Estimated left ventricular ejection fraction 45 to 50 percent on fairly recent echocardiography. 5. Type 2 diabetes mellitus. 6. Previous atrial fibrillation. 7. Hyperlipidemia. 8. Hypertension. 9. Previous gross hematuria and urinary retention. Patient is status post bladder biopsy, 10/09/2018. 10. He is allergic or intolerant to penicillin. MEDICATIONS PRIOR TO ADMISSION: As listed. SOCIAL HISTORY: Patient is and lives alone. He smokes 1 pack of cigarettes per day, but relates that he quit 1 month ago. He drinks alcohol socially. FAMILY HISTORY: Positive for diabetes, hypertension, and atherosclerotic coronary disease. REVIEW OF SYSTEMS: Pulmonary: Noteworthy for chronic exertional shortness of breath, but negative for cough. Gastrointestinal: Noteworthy for recent nausea and vomiting. There has been no melena or bright red blood per rectum. Constitutional: Noteworthy for fatigue, but otherwise negative. Remainder of review of systems negative/noncontributory with 14 total systems reviewed. PHYSICAL EXAMINATION: General: This is a chronically ill-appearing, older white male who actually appears older than stated age, in no distress. Vital Signs: Blood pressure 147/62, heart rate 61, oxygen saturation 100% on nasal cannula oxygen at 2 L/minute. HEENT: Extraocular movements appear intact. Mucous membranes moist. Neck: Supple without jugular venous distention. There are no carotid bruits. Chest: Clear to auscultation bilaterally. Cardiac: Regular rate and rhythm without appreciable murmur or gallop. Abdomen: Soft. Bowel sounds are normal. Extremities: Without edema. Neurologic: Reveals him to be alert and fully oriented. Speech is fluent. Moves all 4 extremities equally well. Skin: Warm and dry. Psychiatric: Reveals mood to be appropriate. EKG: Initial 12 lead EKG demonstrates narrow complex tachycardia at 150 beats per minute, which is quite regular, and possibly atrial flutter with rapid ventricular rate. Most recent ECG demonstrates sinus rhythm with first degree AV block and possible inferior infarct of undetermined age. ST and T-wave abnormality demonstrated, consider lateral ischemia. LABORATORY DATA: Includes white blood cell count of 6.56, hematocrit 34.4, hemoglobin 11.2, platelet count 280. Sodium 143, potassium 3.7, chloride 104, carbon dioxide 25, BUN 53, creatinine 1.4, glucose 80. Initial troponin 0.445 ; followup troponin 0.261 . Previous BUN 71, creatinine 2.2 yesterday. cc: Meño Coello MD
[2019-01-21] MEDS: PROTONIX PO SCH (16:08)
--- NOTE | 2019-01-21 16:29 | PROGRESS NOTE ---
DATE: 01/21/2019 INTERVAL HISTORY: Patient's blood pressure much improved. Still some occasional mild nausea but reasonably controlled on current medication. No further vomiting. Heart rate also much improved. No new complaints. No acute events overnight. REVIEW OF SYSTEMS: Twelve point review of systems negative except as per interval history. LABS: WBC 6.2, hemoglobin 9.9, hematocrit 30.3, platelets 252,000, potassium 3.7, chloride 111, bicarb 22, BUN 28, creatinine 1.3, glucose 134 to 234. VITAL SIGNS: T-max 98.4 degrees, pulse 60, respirations 16, blood pressure 135/52, O2 saturation 100% on 2 L by nasal cannula. PHYSICAL EXAMINATION: General: No acute distress. Vital signs: As above. HEENT: Normocephalic, atraumatic. Less dry mucous membranes. Pulmonary: Largely clear to auscultation bilaterally. Abdomen: Soft, nontender, nondistended. Bowel sounds positive. Extremities: Peripheral pulses intact. No clubbing or cyanosis. Previous wounds stable. Wound/amputation stable. Neurologic: Cranial nerves grossly intact. No focal deficits seen. Neurologic: Cranial nerves grossly intact. Some peripheral neuropathy but otherwise, no focal deficits. Psychiatric: Normal mood and affect. Awake, alert, oriented x3. Skin: Healing surgical incision right toe, 2nd toe. Some chronic wounds which are stable. ASSESSMENT AND PLAN: 1. Tachycardia and hypotension on presentation, likely hypovolemic shock. Resolved with IV fluids. Doing well off antibiotics. Continue fluids 1 more day. Will likely stop tomorrow. 2. Supraventricular tachycardia and elevated troponin on admission. Cardiology consulted and favors demand ischemia/type 2 IL. Trended down. EKG unremarkable. Recent echo stable. Continue home medications. 3. Acute kidney injury, resolving with IV fluids. Exact baseline a little bit uncertain but likely close to baseline CKD 3. 4. Diabetes. Acceptable control on current sliding scale. Monitor. 5. Chronic obstructive pulmonary disease, stable. No sign of exacerbation at this time. 6. Hypertension. Home blood pressure medications initially held because of hypertension. Restarting heart related medications now given improvement in blood pressure. Continue to monitor. 7. Coronary artery disease, stable. Continue home aspirin.
[2019-01-21] MEDS ORDERED: VANCOMYCIN 1 GM/NS 1 GM/250 ML IVPB IV SCH (18:00)
[2019-01-21] MEDS: NEURONTIN PO SCH (21:03)
[2019-01-21] MEDS: LIPITOR PO SCH (21:03)
[2019-01-22] MEDS: CARDIZEM PO SCH ×3 (02:57→14:02)
[2019-01-22] MEDS: ATROVENT HFA INH SCH ×2 (05:36→08:11)
[2019-01-22] MEDS: PROTONIX PO SCH (06:38)
[2019-01-22] MEDS: HUMALOG SUBQ SCH ×3 (06:38→16:58)
[2019-01-22] MEDS: COREG PO SCH (09:13)
[2019-01-22] MEDS: PLAVIX PO SCH (09:13)
[2019-01-22] MEDS: PLETAL PO SCH (09:13)
[2019-01-22] MEDS: ASPIRIN PO SCH (09:13)
[2019-01-22] MEDS: IMDUR PO SCH (09:13)
[2019-01-22 10:38] LABS: BASO# 0.02 X1000 (0.0-0.2); BASO% 0.3 % (0.0-0.8); EOS# 0.29 X1000 (0.0-0.7); EOS% 4.9 % (0.0-10.0); HEMATOCRIT 29.2 % (42.0-52.0); HEMOGLOBIN 9.6 g/dL (14.0-18.0); LYMPH# 1.02 X1000 (1.2-3.4); LYMPH% 17.3 % (20.5-51.1); MCH 28.7 PG (27-31); MCHC 32.9 g/dL (33-37); MCV 87.2 FL (81-99); MONO# 0.38 X1000 (0.11-0.59); MONO% 6.5 % (1.7-9.3); MPV 10.2 FL (7.4-10.4); NEUT# 4.18 X1000 (1.4-6.5); PLT 213 X1000 (130-400); RBC 3.35 XMIL (4.7-6.1); RDW 14.6 % (11.5-14.5); WBC 5.89 X1000 (4.8-10.8)
[2019-01-22 11:09] LABS: CALCIUM 8.9 mg/dL (8.8-10.2); CREATININE 1.3 mg/dL (0.7-1.2); POTASSIUM 3.5 mmol/L (3.5-5.1)
[2019-01-22 11:33] VITALS: BP 141/56
--- NOTE | 2019-01-22 18:33 | PROGRESS NOTE ---
DATE: 01/22/2019 SUBJECTIVE: Patient continues without chest discomfort or shortness of breath on room air. OBJECTIVE: Vital Signs: Blood pressure 141/56, heart rate 62, oxygen saturation 100%. Neck: There is no significant jugular venous distention. Chest: Clear to auscultation bilaterally. Cardiac: Regular rate and rhythm without appreciable murmur, rub, or gallop. There is no evidence of peripheral edema. LABORATORY DATA: Includes white blood cell count of 5.9, hematocrit 29.2, hemoglobin 9.6, platelet count 213,000. Sodium 139, potassium 3.5, chloride 104, carbon dioxide 21, BUN 13, creatinine 1.3, glucose 278. IMPRESSION: 1. Transient narrow complex tachycardia on presentation, possibly atypical atrial flutter with rapid ventricular rate, now resolved. 2. Nonspecific very mild elevation of troponin in the setting of acute renal dysfunction, intravascular volume depletion, narrow complex tachycardia, and underlying atherosclerotic coronary disease. Suspect this is likely a secondary phenomenon related to volume depletion, tachycardia, and acute renal dysfunction. 3. Atherosclerotic coronary disease. 4. Extensive peripheral vascular disease. 5. Chronic obstructive pulmonary disease. 6. Type 2 diabetes mellitus. 7. Hypertension. 8. Chronic cigarette use, only recently discontinued about a month ago. RECOMMENDATIONS: 1. Continue current cardiovascular regimen unchanged. 2. Continue dual antiplatelet therapy. 3. Reasonable for patient to be discharged to home. 4. Conservative cardiovascular management appears most appropriate at this time. cc: Meño Coello MD
--- NOTE | 2019-01-23 05:18 | DISCHARGE SUMMARY ---
ADMISSION DATE: 01/19/2019 DISCHARGE DATE: 01/22/2019 DIAGNOSES: 1.Narrow complex tachycardia, resolved. 2. Probable sepsis. 3. Acute kidney injury in the setting of chronic kidney disease stage 3. 4. Diabetes mellitus. type 2 5. Chronic obstructive pulmonary disease. 6. Hypotension, resolved. 7. Hypertension 8. Atherosclerotic coronary disease. 9. Extensive peripheral vascular disease. DIAGNOSTICS: 1. Chest x-ray revealed no evidence of acute disease. 2. 01/20/2019 chest x-ray revealed stable chest. MICROBIOLOGY: 1. Urine culture revealed mixed flores. 2. Blood cultures revealed no growth after 48 hours. 3. Right foot culture revealed diphtheroids. 4. Right groin culture revealed Achromobacter denitrificans. HOSPITAL COURSE: Mr. Hager presented the emergency room complaining of not feeling well, nausea, vomiting, and poor PO intake. There was concern for sepsis originally with tachycardia and hypotension but no infection was found. he was favored to have hypovolemia rather than sepsis. He received fluid resuscitation with resolution of his tachycardia and hypotension. Dr Coello was consulted for elevated troponin. He favored demand ischemia/type II MS with very mild elevation of troponin in the setting of acute renal dysfunction,intravascular volume depletion, narrow complex tachycardia, and underlying atherosclerotic coronary disease. He recommended continuing conservative cardiovascular management. FOLLOW UP: Dr Coello - 02/03/2019 Dictated by ALEX Catherine for Mark Stone MD cc: ALEX Catherine agree with the above. the following is my own face to face assessment. patient presented with malaise, nausea, vomiting, poor po intake, hypotension, and tachcyardia. no sign of infection found and symptoms resolved with supportive care with IVF. also had mild GIANCARLO that also resolved with saline administration. heart: RRR. lungs: CTAB. MTDD
== END 2019-01-22 18:02 | disposition home or self-care (01) | DRG 872 ==
LOC: P.ED 15:41 → ICU 19:16 → SUATTDRO 19:16 → 4N 01-20 18:38
PROVIDERS: ATTEND Internal Medicine